=== PATIENT | female | born 1965 | race Caucasian/White ===

== ENCOUNTER 2016-11-03 19:23 | Emergency (ER) | payer OTHER ==
--- NOTE | 2016-11-03 21:50 | UC ---
Complaint Female HPI - HPI Summary HPI Summary: pain and burning with urination began 3-4 days ago but got better after taking premed amoxicillin for dental pain, now pain returns - History Of Current Complaint Chief Complaint: UCGU Stated Complaint: URINARY SYMPTOMS Time Seen by Provider: 11/03/16 21:38 Hx Obtained From: Patient Hx Last Menstrual Period: bleeding every 2 weeks ?: No Onset/Duration: Sudden Onset, Lasting Days, Still Present Timing: Constant, Lasting Days Severity Initially: Mild Severity Currently: Mild Pain Intensity: 3 Pain Scale Used: 0-10 Numeric Character: Burning Aggravating Factor(s): Urination Alleviating Factor(s): Meds - premed for dental work with high dose amoxicillin helped a little Associated Signs And Symptoms: Positive: Negative - Allergies/Home Medications Allergies/Adverse Reactions: Allergies Allergy/AdvReac Type Severity Reaction Status Date / Time Sulfa Antibiotics Allergy Rash Verified 11/03/16 21:51 Sumatriptan [From Imitrex] Allergy Difficulty Verified 11/03/16 21:51 Swallowing Home Medications: Home Medications Pramipexole TAB* [Mirapex TAB*] 0.125 mg PO BEDTIME 11/03/16 [History Confirmed 11/03/16] PMH/Surg Hx/FS Hx/Imm Hx Previously Healthy: No - Lupus Neurological History Of: Reports: Migraine Cancer History Of: Denies: Breast Cancer - Surgical History Surgical History: Yes Surgery Procedure, Year, and Place: T&A. 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 Lives: With Family Alcohol Use: None Substance Use Type: None Smoking Status (MU): Never Smoked Tobacco Review of Systems Constitutional: Negative Skin: Negative Eyes: Negative ENT: Negative Respiratory: Negative Cardiovascular: Negative Gastrointestinal: Negative Genitourinary: Dysuria, Frequency, Urgency Motor: Negative Neurovascular: Negative Musculoskeletal: Negative Neurological: Negative Psychological: Negative All Other Systems Reviewed And Are Negative: Yes Physical Exam Triage Information Reviewed: Yes Appearance: Well-Appearing, Well-Nourished, Pain Distress - mild Vital Signs Reviewed: Yes Eye Exam: Normal Eyes: Positive: Conjunctiva Clear ENT Exam: Normal ENT: Positive: Normal ENT inspection, Hearing grossly normal, TMs normal. Negative: Nasal congestion, Nasal drainage, Tonsillar swelling, Tonsillar exudate, Trismus, Muffled/hoarse voice Dental Exam: Normal Neck exam: Normal Neck: Positive: Supple, Nontender, No Lymphadenopathy Respiratory Exam: Normal Respiratory: Positive: Chest non-tender, Lungs clear, Normal breath sounds, No respiratory distress, No accessory muscle use Cardiovascular Exam: Normal Cardiovascular: Positive: No Murmur, Pulses Normal, Brisk Capillary Refill, Tachycardia Abdominal Exam: Other Abdomen Description: Positive: No Organomegaly, Soft, Other: - suprapubic discomfort. Negative: CVA Tenderness (R), CVA Tenderness (L) Bowel Sounds: Positive: Present Musculoskeletal Exam: Normal Musculoskeletal: Positive: Strength Intact, ROM Intact, No Edema Neurological Exam: Normal Neurological: Positive: Alert, Muscle Tone Normal Psychological Exam: Normal Psychological: Positive: Normal Response To Family Skin Exam: Normal Diagnostics - Laboratory Diagnostic Studies Completed/Ordered: ua - sg1.005 25 leuks Complaint Female Dx - Course Course Of Treatment: continue increase fluids, keflex, axo, culture urine follow with pcp re-check prn - Differential Dx/Diagnosis Differential Diagnosis/HQI/PQRI: Renal Colic, Sexually Transmitted Disease, Urinary Tract Infection Provider Diagnoses: UTI Discharge - Discharge Plan Condition: Stable Disposition: HOME Prescriptions: Cephalexin CAP* [Keflex CAP*] 500 mg PO BID #19 cap Fluconazole [Diflucan 150 MG (NF)] 150 mg PO SEE INSTRUCTIONS #1 tab Patient Education Materials: Cephalexin (By mouth), Phenazopyridine (By mouth) , Fluconazole (By mouth), Urinary Tract Infection in Women (ED) Referrals: Allison Oliva MD [Primary Care Provider] - If Needed
[2016-11-03 21:51] VITALS: BP 121/64
[2016-11-03] MEDS ORDERED: Cephalexin CAP* 500 MG PO ONE (22:03)
== END 2016-11-03 22:12 | disposition home or self-care (01) ==
LOC: UCCORT 19:23
DX: N39.0 Urinary tract infection, site not specified (principal); Z88.2 Allergy status to sulfonamides; Z88.8 Allergy status to other drugs, medicaments and biological substances
CPT/HCPCS: 87086; 99212; A9270-GY; G0463

== ENCOUNTER 2017-06-06 15:57 | Emergency (ER) | payer OTHER ==
[2017-06-06 16:36] VITALS: BP 115/69
--- NOTE | 2017-06-06 16:57 | UC ---
Throat Pain/Nasal Stephon HPI - HPI Summary HPI Summary: This is a 51 yo female who presented with c/o sinus pressure and CHARLES. She was treated for a sinus infection with her PCP ~1 month ago and tx'd with a Zpak. She received some temporary relief but then symptoms have been increased over the last 3 weeks again. She has been feeling feverish, pain is worse on the R side of her face. No cough or ST. No SOB. She has been using Sudafed without relief. She is treated for lupus and is on 2 immune suppresant medications. - History of Current Complaint Chief Complaint: UCGeneralIllness Stated Complaint: CHARLES/CONGESTION Hx Last Menstrual Period: 05/16/17 - Allergies/Home Medications Allergies/Adverse Reactions: Allergies Allergy/AdvReac Type Severity Reaction Status Date / Time Sulfa Antibiotics Allergy Rash Verified 06/06/17 16:30 Sumatriptan [From Imitrex] Allergy Difficulty Verified 06/06/17 16:30 Swallowing Home Medications: Home Medications Ibuprofen TAB* [Advil TAB*] 400 mg PO Q6H PRN 06/06/17 [History Confirmed ] Pseudoephedrine TAB* [Sudafed TAB*] 30 mg PO Q6H PRN 06/06/17 [History Confirmed 06/06/17] azaTHIOprine TAB(*) [Imuran TAB(*)] 50 mg PO DAILY 06/06/17 [History Confirmed 06/06/17] PMH/Surg Hx/FS Hx/Imm Hx Previously Healthy: No - lupus, migraine HAs, coagulopathy - Surgical History Surgical History: Yes Surgery Procedure, Year, and Place: T&A. BREAST SX X 2 - Family History Known Family History: Positive: Cardiac Disease, Hypertension, Diabetes - Social History Alcohol Use: None Substance Use Type: None Smoking Status (MU): Never Smoked Tobacco - Immunization History Most Recent Influenza Vaccination: none Review of Systems Constitutional: Negative Skin: Negative Eyes: Negative ENT: Ear Ache, Sinus Congestion, Sinus Pain/Tenderness Respiratory: Negative Cardiovascular: Negative Gastrointestinal: Negative Genitourinary: Negative Motor: Negative Neurovascular: Negative Musculoskeletal: Negative Neurological: Negative Psychological: Negative All Other Systems Reviewed And Are Negative: Yes Physical Exam Triage Information Reviewed: Yes Appearance: Ill-Appearing - mildly Vital Signs: Initial Vital Signs Temp 99.6 F 09/05/17 16:32 Pulse 80 06/06/17 16:32 Resp 16 06/06/17 16:32 BP 115/69 06/06/17 16:32 Pulse Ox 100 06/06/17 16:32 Vital Signs Reviewed: Yes ENT: Positive: Pharynx normal, Nasal congestion, TM dull. Negative: Pharyngeal erythema, Tonsillar swelling, Tonsillar exudate Dental: Positive: Percussion Tenderness @ - R maxillary and frontal sinuses Neck: Positive: Supple, Nontender, No Lymphadenopathy Respiratory: Positive: Lungs clear, Normal breath sounds. Negative: Crackles, Rhonchi, Wheezing Cardiovascular Exam: Normal Cardiovascular: Positive: RRR, No Murmur Abdominal Exam: Normal Abdomen Description: Positive: Nontender, Soft Musculoskeletal Exam: Normal Musculoskeletal: Positive: Strength Intact Neurological Exam: Normal Psychological Exam: Normal Skin Exam: Normal Skin: Negative: rashes Throat Pain/Nasal Course/Dx - Course Course Of Treatment: This is a 51 yo female with lupus who presents with worsening sinus symptoms over the last several weeks without response to decongestants. Treat for acute sinusitis with Augmentin. - Differential Dx/Diagnosis Differential Diagnosis/HQI/PQRI: Laryngitis, Sinusitis, Tonsillitis, URI Provider Diagnoses: 1. Sinusitis Discharge - Discharge Plan Condition: Stable Disposition: HOME Prescriptions: Amoxicillin/Clavulanate TAB* [Augmentin TAB 875*] 875 mg PO BID #28 tab Patient Education Materials: Sinusitis (ED) Referrals: Allison Oliva MD [Primary Care Provider] - If Needed Additional Instructions: Instructions: 1. Take antibiotics as directed 2. Please cont decongestants, steam therapy and other home remedies
== END 2017-06-06 16:55 | disposition home or self-care (01) ==
LOC: UCCORT 15:57
DX: J32.9 Chronic sinusitis, unspecified (principal); Z88.2 Allergy status to sulfonamides
CPT/HCPCS: 99212; G0463

== ENCOUNTER 2017-11-11 20:35 | Emergency (ER) | payer OTHER ==
--- OUTSIDE RECORDS SUMMARY | 2017-11-11 20:43 | XMS REPORT ---
:1965 External Reference #:[id number] Author Organization [facility] Address [address] [facility]/[address] [place] [address] Phone [phone] Care Team Providers Name Role Phone Allison Oliva MD Care Team Information Computer Security Manager Unavailable Allison Oliva MD Primary Care Physician Unavailable Payers Type Date Identification Numbers Payment Provider Subscriber Commercial Policy Number: [id number] [facility] Bebeto Alex PayID: [id number] [place] [address] Problems Date Description Provider Status Onset: 11/16/2016 Restless legs Zhang WalkerP Active Onset: 11/16/2016 Mixed hyperlipidemia Zhang WalkerP Active Onset: 11/16/2016 Allergic rhinitis hZang WalkerP Active Onset: 11/16/2016 Systemic lupus erythematosus Zhang Walker 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 Onset: 11/16/2016 Low back pain Zhang WalkerP Active Onset: 11/16/2016 Attention deficit hyperactivity disorder, Zhang WalkerP Active predominantly inattentive type Onset: 11/16/2016 Anxiety state Zhang WalkerP Active Onset: 11/16/2016 Recurrent major depressive episodes Zhang Walker 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 Onset: 11/16/2016 Insomnia Zhang Walker 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 Onset: 11/16/2016 Irritable bowel syndrome Zhang Walker 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 Onset: 11/16/2016 Refractory migraine with aura Zhang WalkerP Active Family History Date Family Member(s) Problem(s) Comments Father 68 Father Hypercholesterolemia Father Hypertension Father Diabetes Father Fibromyalgia Father Migraine Mother due to At Age 62 () Mother Migraine Mother due to Unknown Causes () First Son 20 First Son Migraine First Daughter Narcolepsey First Daughter 22 First Daughter [place]burgers- Autism First Brother 43 First Brother No Current Problems First Sister 46 First Sister Fibromyalgia Social History Type Date Description Comments Marital Status Legal Status: ETOH Use Rarely consumes alcohol Smoking Patient has never smoked Daily Caffeine Consumes on average 1 cup of regular coffee per day Allergies, Adverse Reactions, Alerts Date Description Reaction Status Severity Comments 01/21/2016 Imitrex active 09/23/2016 Neurontin SEVERE FLUID RETENTION active 12/21/2016 ALL Sulfa Drugs active Medications Medication Date Status Form Strength Qnty SIG Indications Ordering Provider Clindamycin HCL 10/19/ Hx Capsules 300mg 21caps 1 cap by J01.90 Pj, 2017 - mouth Allison Yeager, 10/26/ three M.DTamara 2018 times a day Fluconazole 05/04/ Active Tablets 150mg 2tabs tab one J01.80 Pj, 2016 now january Allison Yeager, repeat in M.D. 5 days Linzess 02/01/ Active Capsules 145mcg 45caps 1-2 one K59.00 Pj, 2017 hour Allison Yeager, prior to M.D. meals Fe Caps/Stool 02/01/ Active Tablets 50-100mg OTC M32.9 Pj, Softener 2016 Allison Yeager M.D. Pramipexole 11/16/ Active Tablets 0.125mg 60tabs tab two G25.81 Pj, Dihydrochloride 2016 by mouth Allison Yeager, every at M.D. bedtime Aspirin 05/20/ Active Tablets 81mg 1 by M32.9 Pj, 2015 mouth Allison Yeager, every day M.DTamara D68.61 Plaquenil 04/22/2016 Active Tablets 200mg 180tabs 1 tab by mouth M32.9 Pj, twice a Ahmad day-rheumatology Isabella Yeager Amphetamine-D Active Caps ER 10mg 30caps 1 tab by mouth F90.0 Pj, extroamphet 24HR every morning Allison Yeager M.D. Amphetamine-D Active Tablets 10mg 30tabs 1 tab by mouth @ F90.0 Pj, extroamphetam noon Allison Yeager M.D. Butalbital/Ac Active Tablets 50-325 30tabs tab one q 6 hr G43.11 Pj, etaminophen/C -40mg prn 9 Allison Yeager M.D. Azathioprine Active Tablets 50mg One PO qd Per Unknown Rheum Ciprofloxacin 06/29/2017 Hx Tablets 500mg 20tabs tab one by mouth Pj, HCL - twice a day Ahmad 07/09/2017 Isabella Yeager Nitrofurantoi 06/28/2017 Hx Capsules 100mg 10caps tab one by mouth Pj, n Monohyd - twice a day doreend Macro 06/29/2017 Isabella Yeager Azithromycin 05/04/2017 Hx Tablets 250mg 6tabs take two tablets J01.80 Pj, - [facility] dose on the first Isabella Yeager day then take one daily thereafter x 4 days Meclizine HCL 03/15/2017 Hx Tablets 25mg 30tabs 1 by mouth every H81.13 Pj, - 8 hours [facility] needed [facility] 03/[facility]2017 Isabella Yeager Alprazolam 12/21/2016 Hx Tablets 0.25mg 90tabs 1 by mouth three Pj, - times a day as mad 03/15/2017 needed Isabella Yeager Macrobid 12/21/2016 Hx Capsules 100mg 10caps tab one by mouth Pj, - twice a day x 5 Ahmad 12/26/2016 days Isabella Yeager Fluconazole 12/21/2016 Hx Tablets 100mg 10tabs tab one by mouth Pj, - x10 days mad 01/01/2017 Isabella Yeager Omeprazole 11/16/2016 Hx Capsules 40mg 30caps please cancel Pj, - DR bird gillian 11/11/2016 Isabella Yeager Azithromycin 10/12/2016 Hx Tablets 250mg 6tabs take two tablets J01.80 Pj, - by mouth as [facility]2016 dose on the first Isabella Yeager day then take one daily thereafter x 4 days Pramipexole 09/23/2016 Hx Tablets 0.125m 30tabs tab one by mouth G25.81 Pj, Dihydrochlori - g every at bedtime Ahmad de 11/16/2016 Isabella Yeager Amoxicillin 09/08/2016 Hx Tablets 500mg 40tabs 2 by mouth twice J20.9 Pj, - a day Ahmad 09/18/2016 Isabella Yeager Diflucan 09/08/2016 Hx Tablets 150mg 2tabs 1 tab by mouth J20.9 Pj, - today and [facility]2016 in 1 week as Isabella Yeager needed Neurontin 08/09/2016 Hx Capsules 100mg 60caps On Hold 1-2 cap G25.81 Pj, - by mouth every Ahmad 09/23/2016 night as needed Isabella Yeager Tranexamic Hx Tablets 650mg N92.0 Unknown Acid - 08/02/2016 Lorazepam Hx Tablets 0.5mg 30tabs 1/2-1 tab by G25.81 Pj, - mouth every night Ahrid 10/12/2016 as needed Isabella Yeager G47.00 F41.9 Pramipexole - Hx Tablets 0.5mg G25.81 Sd Lang Dihydrochloride 08/02/2016 Isabella Vital Signs Date Vital Result Comment 10/19/2017 BP Systolic 110 mmHg BP Diastolic 60 mmHg Height 67 inches 5'7" Weight 139.00 lb BMI (Body Mass Index) 21.8 kg/m2 Heart Rate 119 /min Respiratory Rate 18 /min 08/23/2017 BP Systolic 110 mmHg BP Diastolic 68 mmHg Height 67 inches 5'7" Weight 141.00 lb BMI (Body Mass Index) 22.1 kg/m2 Heart Rate 84 /min Respiratory Rate 16 /min 07/26/2017 BP Systolic 120 mmHg BP Diastolic 78 mmHg Height 67 inches 5'7" Weight 144.00 lb BMI (Body Mass Index) 22.6 kg/m2 Heart Rate 97 /min Respiratory Rate 16 /min 06/28/2017 BP Systolic 108 mmHg BP Diastolic 62 mmHg Height 67 inches 5'7" Weight 143.00 lb BMI (Body Mass Index) 22.4 kg/m2 Heart Rate 86 /min Respiratory Rate 18 /min 06/07/2017 BP Systolic 118 mmHg BP Diastolic 95 mmHg Height 67 inches 5'7" Weight 138.00 lb BMI (Body Mass Index) 21.6 kg/m2 Heart Rate 98 /min Respiratory Rate 16 /min 05/31/2017 BP Systolic 100 mmHg BP Diastolic 60 mmHg Height 67 inches 5'7" Weight 138.00 lb BMI (Body Mass Index) 21.6 kg/m2 Heart Rate 82 /min Respiratory Rate 18 /min 05/04/2017 BP Systolic 110 mmHg BP Diastolic 60 mmHg Height 67 inches 5'7" Weight 145.00 lb BMI (Body Mass Index) 22.7 kg/m2 Heart Rate 98 /min Body Temperature 97.6 F Respiratory Rate 16 /min 03/15/2017 BP Systolic 118 mmHg BP Diastolic 70 mmHg Height 67 inches 5'7" Weight 137.00 lb BMI (Body Mass Index) 21.5 kg/m2 Heart Rate 97 /min Respiratory Rate 16 /min 02/01/2017 BP Systolic 126 mmHg BP Diastolic 64 mmHg Height 67 inches 5'7" Weight 137.00 lb BMI (Body Mass Index) 21.5 kg/m2 Heart Rate 68 /min Respiratory Rate 16 /min 12/21/2016 BP Systolic 118 mmHg BP Diastolic 72 mmHg Height 67 inches 5'7" Weight 140.00 lb BMI (Body Mass Index) 21.9 kg/m2 Heart Rate 90 /min Respiratory Rate 18 /min 11/16/2016 BP Systolic 118 mmHg BP Diastolic 72 mmHg Height 67 inches 5'7" Weight 141.00 lb BMI (Body Mass Index) 22.1 kg/m2 Heart Rate 104 /min Respiratory Rate 18 /min 10/12/2016 BP Systolic 118 mmHg BP Diastolic 62 mmHg Height 67 inches 5'7" Weight 136.00 lb BMI (Body Mass Index) 21.3 kg/m2 Heart Rate 70 /min Respiratory Rate 18 /min 09/23/2016 BP Systolic 108 mmHg BP Diastolic 62 mmHg Height 67 inches 5'7" Weight 139.00 lb BMI (Body Mass Index) 21.8 kg/m2 Heart Rate 83 /min Respiratory Rate 20 /min 09/08/2016 BP Systolic 100 mmHg BP Diastolic 72 mmHg Height 67 inches 5'7" Weight 139.00 lb BMI (Body Mass Index) 21.8 kg/m2 Heart Rate 72 /min Respiratory Rate 18 /min 08/09/2016 BP Systolic 108 mmHg BP Diastolic 68 mmHg Height 67 inches 5'7" Weight 137.00 lb BMI (Body Mass Index) 21.5 kg/m2 Heart Rate 61 /min Respiratory Rate 16 /min 06/24/2016 BP Systolic 104 mmHg BP Diastolic 66 mmHg Height 67 inches 5'7" Weight 136.00 lb BMI (Body Mass Index) 21.3 kg/m2 Heart Rate 86 /min Respiratory Rate 20 /min 05/20/2016 BP Systolic 116 mmHg BP Diastolic 68 mmHg Height 67 inches 5'7" Weight 136.00 lb BMI (Body Mass Index) 21.3 kg/m2 Heart Rate 74 /min Respiratory Rate 20 /min 04/22/2016 BP Systolic 124 mmHg BP Diastolic 76 mmHg Height 67 inches 5'7" Weight 139.00 lb BMI (Body Mass Index) 21.8 kg/m2 Heart Rate 84 /min Respiratory Rate 20 /min 03/18/2016 BP Systolic 112 mmHg BP Diastolic 82 mmHg Height 67 inches 5'7" Weight 139.00 lb BMI (Body Mass Index) 21.8 kg/m2 Heart Rate 74 /min Respiratory Rate 18 /min 02/25/2016 BP Systolic 116 mmHg BP Diastolic 80 mmHg Height 67 inches 5'7" Weight 137.00 lb BMI (Body Mass Index) 21.5 kg/m2 Heart Rate 72 /min Respiratory Rate 18 /min 02/19/2016 BP Systolic 104 mmHg BP Diastolic 60 mmHg Height 67 inches 5'7" Weight 137.00 lb BMI (Body Mass Index) 21.5 kg/m2 Heart Rate 72 /min Respiratory Rate 16 /min 01/21/2016 BP Systolic 126 mmHg BP Diastolic 64 mmHg Height 67 inches 5'7" Weight 140.00 lb BMI (Body Mass Index) 21.9 kg/m2 Heart Rate 105 /min Body Temperature 97.3 F Respiratory Rate 18 /min Results Test Date Test Result H/L Range Note Laboratory test finding 07/26/2017 Hemoglobin A1c (Glyco HGB) 5.0 % 4.0- 5.6 1 Vitamin D Total 25(Oh) 19.0 ng/mL Low 20-50 2 Erythrocyte Sed Rate 10 mm/Hr 0-14 3 CRP High Sensitivity 1.38 mg/L 4 Lipid Profile (Trig/Chol/HDL) 07/26/2017 Triglycerides 99 mg/dL 5 Cholesterol 268 mg/dL 6 HDL Cholesterol 61.0 mg/dL 7 LDL Cholesterol 187 mg/dL 8 Laboratory test finding 07/26/2017 TSH (Thyroid Stim Horm) 2.10 mcIU/mL 0.34-5.60 9 Comp Metabolic Panel 07/26/2017 Sodium 136 mmol/L 133-145 Potassium 4.0 mmol/L 3.5-5.0 Chloride 104 mmol/L 101-111 Co2 Carbon Dioxide 23 mmol/L 22-32 Anion Gap 9 mmol/L 2-11 Glucose 78 mg/dL 70-100 Blood Urea Nitrogen 14 mg/dL 6-24 Creatinine 0.68 mg/dL 0.51-0.95 BUN/Creatinine Ratio 20.6 High 8-20 Calcium 9.1 mg/dL 8.6-10.3 Total Protein 6.9 g/dL 6.4-8.9 Albumin 4.2 g/dL 3.2-5.2 Globulin 2.7 g/dL 2-4 Albumin/Globulin Ratio 1.6 1-3 Total Bilirubin 0.30 mg/dL 0.2-1.0 Alkaline Phosphatase 44 U/L 34-104 Alt 12 U/L 7-52 Ast 17 U/L 13-39 Egfr Non- 92.0 >60 Egfr 118.3 >60 10 CBC Auto Diff 07/26/2017 White Blood Count 5.3 10^3/uL 3.5-10.8 Red Blood Count 4.38 10^6/uL 4.0-5.4 Hemoglobin 12.1 g/dL 12.0-16.0 Hematocrit 37 % 35-47 Mean Corpuscular Volume 84 fL 80-97 Mean Corpuscular Hemoglobin 28 pg 27-31 Mean Corpuscular HGB Conc 33 g/dL 31-36 Red Cell Distribution Width 19 % High 10.5-15 Platelet Count 257 10^3/uL 150-450 Mean Platelet Volume 9 um3 7.4-10.4 Abs Neutrophils 3.5 10^3/uL 1.5-7.7 Abs Lymphocytes 1.2 10^3/uL 1.0-4.8 Abs Monocytes 0.5 10^3/uL 0-0.8 Abs Eosinophils 0.1 10^3/uL 0-0.6 Abs Basophils 0 10^3/uL 0-0.2 Abs Nucleated RBC 0 10^3/uL Granulocyte % 65.2 % 38-83 Lymphocyte % 23.4 % Low 25-47 Monocyte % 9.8 % High 1-9 Eosinophil % 1.0 % 0-6 Basophil % 0.6 % 0-2 Nucleated Red Blood Cells % 0 Creatinine 06/03/2017 Creatinine 0.71 mg/dL 0.51-0.95 Egfr Non- 87.5 >60 Egfr 112.5 >60 11 Comp Metabolic Panel 06/03/2017 Sodium 137 mmol/L 133-145 Potassium 3.9 mmol/L 3.5-5.0 Chloride 104 mmol/L 101-111 Co2 Carbon Dioxide 27 mmol/L 22-32 Anion Gap 6 mmol/L 2-11 Glucose 87 mg/dL 70-100 Blood Urea Nitrogen 14 mg/dL 6-24 Creatinine 0.71 mg/dL 0.51-0.95 BUN/Creatinine Ratio 19.7 8-20 Calcium 9.4 mg/dL 8.6-10.3 Total Protein 6.8 g/dL 6.4-8.9 Albumin 4.5 g/dL 3.2-5.2 Globulin 2.3 g/dL 2-4 Albumin/Globulin Ratio 2.0 1-3 Total Bilirubin 0.30 mg/dL 0.2-1.0 Alkaline Phosphatase 42 U/L 34-104 Alt 11 U/L 7-52 Ast 16 U/L 13-39 Egfr Non- 87.5 >60 Egfr 112.5 >60 12 Laboratory test finding 06/03/2017 C Reactive Protein < 1.00 mg/L &lt ; 5.00 13 TSH (Thyroid Stim Horm) 1.31 mcIU/mL 0.34-5.60 Free T3 2.70 pg/mL 2.5-3.9 Free T4 (Free Thyroxine) 0.95 ng/dL 0.61-1.12 Total T3 0.73 ng/mL Low 0.87-1.78 Thyroid Peroxidase Antibodies 0.63 IU/mL <9 CBC Auto Diff 06/03/2017 White Blood Count 4.7 10^3/uL 3.5-10.8 Red Blood Count 4.25 10^6/uL 4.0-5.4 Hemoglobin 11.0 g/dL Low 12.0-16.0 Hematocrit 34 % Low 35-47 Mean Corpuscular Volume 79 fL Low 80-97 Mean Corpuscular Hemoglobin 26 pg Low 27-31 Mean Corpuscular HGB Conc 33 g/dL 31-36 Red Cell Distribution Width 19 % High 10.5-15 Platelet Count 265 10^3/uL 150-450 Mean Platelet Volume 9 um3 7.4-10.4 Abs Neutrophils 2.9 10^3/uL 1.5-7.7 Abs Lymphocytes 1.3 10^3/uL 1.0-4.8 Abs Monocytes 0.3 10^3/uL 0-0.8 Abs Eosinophils 0.1 10^3/uL 0-0.6 Abs Basophils 0 10^3/uL 0-0.2 Abs Nucleated RBC 0 10^3/uL Granulocyte % 61.6 % 38-83 Lymphocyte % 27.8 % 25-47 Monocyte % 7.2 % 1-9 Eosinophil % 2.6 % 0-6 Basophil % 0.8 % 0-2 Nucleated Red Blood Cells % 0 Laboratory test finding 06/03/2017 Erythrocyte Sed Rate 11 mm/Hr 0-14 Thyroglobulin AB <1.8 IU/mL <4.0 14 Factor 8 Profile 06/03/2017 Coagulation Factor VIII Activi 65 % 55 - 200 15 von Willebrand Factor Antigen 72 % 55 - 200 16 VonWillibrand Factor Activity 67 % 55 - 200 17 von Willebrand Panel Interp See Comment 18 Laboratory test 06/03/2017 T3 Reverse 24 ng/dL 10- 19 finding Laboratory test 11/03/2016 Urine Culture And SEE RESULT 20, 21 finding Sensitivities BELOW CBC Auto Diff 07/21/2016 White Blood Count 5.3 10^3/uL 3.5-10.8 22 Red Blood Count 3.92 10^6/uL Low 4.0-5.4 22 Hemoglobin 9.9 g/dL Low 12.0-16.0 22 Hematocrit 31 % Low 35-47 22 Mean Corpuscular Volume 78 fL Low 80-97 22 Mean Corpuscular Hemoglobin 25 pg Low 27-31 22 Mean Corpuscular HGB Conc 32 g/dL 31-36 22 Red Cell Distribution Width 16 % High 10.5-15 22 Platelet Count 290 10^3/uL 150-450 22 Mean Platelet Volume 9 um3 7.4-10.4 22 Abs Neutrophils 3.2 10^3/uL 1.5-7.7 22 Abs Lymphocytes 1.4 10^3/uL 1.0-4.8 22 Abs Monocytes 0.5 10^3/uL 0-0.8 22 Abs Eosinophils 0.1 10^3/uL 0-0.6 22 Abs Basophils 0 10^3/uL 0-0.2 22 Abs Nucleated RBC 0 10^3/uL 22 Granulocyte % 60.2 % 38-83 22 Lymphocyte % 27.0 % 25-47 22 Monocyte % 10.3 % High 1-9 22 Eosinophil % 1.6 % 0-6 22 Basophil % 0.9 % 0-2 22 Nucleated Red Blood Cells % 0 22 Laboratory test finding 07/17/2016 Urine Culture SEE RESULT BELOW 23, 24 Iron & Iron Binding 02/19/2016 Iron 35 g/dL Low 50-212 Capacity Unsaturated Iron Binding 315 g/dL Total Iron Binding Capacity 350 g/dL 250-450 % Iron Saturation 10 % Low 15-55 Lipid Profile (Trig/Chol/HDL) 02/19/2016 Triglycerides 55 mg/dL 25 Cholesterol 213 mg/dL 26 HDL Cholesterol 63.5 mg/dL 27 LDL Cholesterol 139 mg/dL 28 Laboratory test finding 02/19/2016 Rheumatoid Factor <15 IU/mL <15 29 TSH (Thyroid Stim Horm) 0.73 ?IU/mL 0.34-5.60 30 Free T4 (Free Thyroxine) 0.92 ng/dL 0.61-1.12 31 Vitamin D, 1,25 Dihydroxy 61 pg/mL 18-78 32 Lyme Disease Serology Negative Negative 33 Hepatitis Acute PNL 02/19/2016 Hepatitis C Antibody Nonreactive Nonreactive 34 ([facility]) Hepatitis A AB Igm Nonreactive Nonreactive 35 Hepatitis B Core AB Igm Nonreactive Nonreactive 36 Hepatitis B Surface Ag Nonreactive Nonreactive 37 Laboratory test finding 02/19/2016 CRP High Sensitivity 0.89 mg/L 38 Erythrocyte Sed Rate 7 mm/Hr 0-14 39 Connective Tissue Panel 02/19/2016 Anti-Nuclear Antibody 1.5 U High 40 Cyclic Citrullinated Peptide 17.8 U 41 Interpretation See Comment 42 Comp Metabolic Panel 02/19/2016 Sodium 137 mmol/L 133-145 Potassium 3.5 mmol/L 3.5-5.0 Chloride 105 mmol/L 101-111 Co2 Carbon Dioxide 26 mmol/L 22-32 Anion Gap 6 mmol/L 2-11 Glucose 96 mg/dL 70-100 Blood Urea Nitrogen 15 mg/dL 6-24 Creatinine 0.64 mg/dL 0.51-0.95 BUN/Creatinine Ratio 23.4 High 8-20 Calcium 8.7 mg/dL 8.6-10.3 Total Protein 6.4 g/dL 6.4-8.9 Albumin 4.2 g/dL 3.2-5.2 Globulin 2.2 g/dL 2-4 Albumin/Globulin Ratio 1.9 1-3 Total Bilirubin 0.40 mg/dL 0.2-1.0 Alkaline Phosphatase 39 U/L 34-104 Alt 13 U/L 7-52 Ast 14 U/L 13-39 Egfr Non- 99.0 >60 Egfr 127.4 >60 43 CBC Auto Diff 02/19/2016 White Blood Count 6.6 10^3/uL 3.5-10.8 Red Blood Count 3.97 10^6/uL Low 4.0-5.4 Hemoglobin 11.1 g/dL Low 12.0-16.0 Hematocrit 33 % Low 35-47 Mean Corpuscular Volume 84 fL 80-97 Mean Corpuscular Hemoglobin 28 pg 27-31 Mean Corpuscular HGB Conc 33 g/dL 31-36 Red Cell Distribution Width 14 % 10.5-15 Platelet Count 240 10^3/uL 150-450 Mean Platelet Volume 10 um3 7.4-10.4 Abs Neutrophils 4.4 10^3/uL 1.5-7.7 Abs Lymphocytes 1.5 10^3/uL 1.0-4.8 Abs Monocytes 0.5 10^3/uL 0-0.8 Abs Eosinophils 0.1 10^3/uL 0-0.6 Abs Basophils 0 10^3/uL 0-0.2 Abs Nucleated RBC 0 10^3/uL Granulocyte % 66.8 % 38-83 Lymphocyte % 22.8 % Low 25-47 Monocyte % 8.1 % 1-9 Eosinophil % 1.9 % 0-6 Basophil % 0.4 % 0-2 Nucleated Red Blood Cells % 0 1 Therapeutic target for the treatment of diabetes mellitus patients is <7% HBA1C, and in selective patients <6.0%. Please refer to [place] [employer] diabetic care guidelines for further information. 2 [id number] 3 [id number] 4 Low risk: <1.00 Average risk: 1.00-3.00 High risk: >3.00 5 Desirable: <150 Borderline High: 150-199 High: 200-499 Very High: >500 6 Desirable: <200 Borderline High: 200-239 High: >239 7 Low: <40 Desirable: 40-60 High: >60 8 Desirable: <100 Near Optimal: 100-129 Borderline High: 130-159 High: 160-189 Very High: >189 9 [id number] 10 Because ethnic data is not always readily available, this report includes an eGFR for both -Americans and non- Americans. The National Kidney Disease Education Program (NKDEP) does not endorse the use of the MDRD equation for patients that are not between the ages of 18 and 70, are , have extremes of body size, muscle mass, or nutritional status, or are non- or non-. According to the National Kidney Foundation, irrespective of diagnosis, the stage of the disease is based on the level of kidney function: Stage Description GFR(mL/min/1.73 m(2)) 1 Kidney damage with normal or decreased GFR 90 2 Kidney damage with mild decrease in GFR 60-89 3 Moderate decrease in GFR 30-59 4 Severe decrease in GFR 15-29 5 Kidney failure <15 (or dialysis) 11 Because ethnic data is not always readily available, this report includes an eGFR for both -Americans and non- Americans. The National Kidney Disease Education Program (NKDEP) does not endorse the use of the MDRD equation for patients that are not between the ages of 18 and 70, are , have extremes of body size, muscle mass, or nutritional status, or are non- or non-. According to the National Kidney Foundation, irrespective of diagnosis, the stage of the disease is based on the level of kidney function: Stage Description GFR(mL/min/1.73 m(2)) 1 Kidney damage with normal or decreased GFR 90 2 Kidney damage with mild decrease in GFR 60-89 3 Moderate decrease in GFR 30-59 4 Severe decrease in GFR 15-29 5 Kidney failure <15 (or dialysis) 12 Because ethnic data is not always readily available, this report includes an eGFR for both -Americans and non- Americans. The National Kidney Disease Education Program (NKDEP) does not endorse the use of the MDRD equation for patients that are not between the ages of 18 and 70, are , have extremes of body size, muscle mass, or nutritional status, or are non- or non-. According to the National Kidney Foundation, irrespective of diagnosis, the stage of the disease is based on the level of kidney function: Stage Description GFR(mL/min/1.73 m(2)) 1 Kidney damage with normal or decreased GFR 90 2 Kidney damage with mild decrease in GFR 60-89 3 Moderate decrease in GFR 30-59 4 Severe decrease in GFR 15-29 5 Kidney failure <15 (or dialysis) 13 Acute inflammation: >10.00 14 ADDITIONAL INFORMATION The thyroglobulin antibody testing method is an immunoenzymatic assay manufactured by [employer] and performed on the [employer] DXI 800. Values obtained from different assay methods or kits may be different and cannot be used interchangeably. The results cannot be interpreted as absolute evidence for the presence or absence of malignant disease. Test Performed by: [facility] - [address] [address] 15 ADDITIONAL INFORMATION This test has been modified from the supervisor livestock yard's instructions. Its performance characteristics were determined by [facility] in a manner consistent with CLIA requirements. This test has not been cleared or approved by the U.S. Food and Drug Administration. 16 ADDITIONAL INFORMATION This test has been modified from the supervisor livestock yard's instructions. Its performance characteristics were determined by [facility] in a manner consistent with CLIA requirements. This test has not been cleared or approved by the U.S. Food and Drug Administration. 17 ADDITIONAL INFORMATION This test has been modified from the supervisor livestock yard's instructions. Its performance characteristics were determined by [facility] in a manner consistent with CLIA requirements. This test has not been cleared or approved by the U.S. Food and Drug Administration. 18 No laboratory evidence of von Willebrand's disease based on normal results of factor VIII activity, von Willebrand factor activity, and von Willebrand factor antigen. Note: von Willebrand factor antigen and activity and/or factor VIII may be increased above baseline levels by acute or chronic inflammation, stress or adrenergic stimuli, or estrogen and oral contraceptive therapy, or liver disease. Recent administration of desmopressin or von Willebrand factor concentrate may mask the diagnosis of von Willebrand's disease. Suggest clinical correlation. Interpretation not reviewed by physician. Test Performed by: [facility] - [address] [address] 19 ADDITIONAL INFORMATION This test was developed and its performance characteristics determined by [facility] in a manner consistent with CLIA requirements. This test has not been cleared or approved by the U.S. Food and Drug Administration. Test Performed by: [facility] - [address] [id number] 20 [id number] 21 SEE RESULT BELOW Name: BEBETO ALEX : [address]: Sayra Allen MD Acct: [id number] Unit: [id number] AGE: 51 Location: [facility] Re11/03/16 SEX: F Status: DEP ER SPEC: [id number] ODESSA: 11/03/16 [facility] DR: Suzy Owusu NP REQ: [id number] RECD: 11/04/16 STATUS: COMP CAYLA DR: Allison Allen MD _ SOURCE: URINE SPDESC: ORDERED: Urine Culture COMMENTS: [id number] Procedure Result Reported Site Urine Culture Final 11/05/16- 916 ML No Growth (<1,000 CFU/mL) * ML - MAIN LAB ([facility]) . END OF REPORT * ML=Testing performed at Main Lab DEPARTMENT OF PATHOLOGY, [address] [place] [address] Toro Sheldon M.D. Director [facility] # [id number] 24 SEE RESULT BELOW Name: BEBETO ALEX : [address]: Lyle Napoles MD Acct: [id number] Unit: [id number] AGE: 50 Location: [facility] Re07/17/16 SEX: F Status: DEP ER SPEC: [id number] ODESSA: 07/17/16 [facility] DR: Lyle Napoles MD REQ: [id number] RECD: 07/18/16 STATUS: TREVOR KULKARNI DR: Allison Oliva MD [facility] _ SOURCE: URINE SPDESC: ORDERED: Urine Culture COMMENTS: [id number] Procedure Result Reported Site Urine Culture Final 07/19/16- 0836 ML No Growth (<1,000 CFU/mL) * ML - [facility] ([facility]) . END OF REPORT * ML=Testing performed at Main [facility] DEPARTMENT OF PATHOLOGY, [address] [place] [address] Toro Sheldon M.D. Director [facility] # [id number] 25 Desirable <150 Borderline high 150-199 High 200-499 Very High >500 26 Desirable <200 Borderline high 200-239 High >239 27 Low <40 Desirable: 40-60 High: >60 28 Desirable: <100 mg/dL Near Optimal: 100-129 mg/dL Borderline High: 130-159 mg/dL High: 160-189 mg/dL Very High: >189 mg/dL 29 Test Performed by: [address] [address] Manager Nicu: Yan Sage II, M.D., Ph.D. 30 [id number] 32 Test Performed by: [address] [address] Manager Nicu: Yan Sage II, M.D., Ph.D. 33 Serologic response to B. burgdorferi infection is not detected, but cannot rule out early infection during which low or undetectable antibody levels to B. burgdorferi may be present. If clinically indicated, a new serum specimen should be submitted in 7-14 days. Test Performed by: [facility] [place] [address] Manager Nicu: Yan Sage II, M.D., Ph.D. 34 [id number] 38 Low risk: <1.00 Average risk: 1.00-3.00 High risk: >3.00 39 [id number] 40 Interpretation: Weak Positive (1.1-2.9) REFERENCE VALUE <=1.0 (Negative) 41 REFERENCE VALUE <20.0 (Negative) 42 Tests for antibodies to dsDNA and CHRIS antigens are not performed automatically unless the MANOJ result is > or= 3.0 U. Studies performed at [facility] indicate that positive MANOJ results <3.0 U are rarely accompanied by positive second order tests. Test Performed by: [facility] [place] [address] Manager Nicu: Yan Sage II, M.D., Ph.D. 43 Because ethnic data is not always readily available, this report includes an eGFR for both -Americans and non- Americans. The National Kidney Disease Education Program (NKDEP) does not endorse the use of the MDRD equation for patients that are not between the ages of 18 and 70, are , have extremes of body size, muscle mass, or nutritional status, or are non- or non-. According to the National Kidney Foundation, irrespective of diagnosis, the stage of the disease is based on the level of kidney function: Stage Description GFR(mL/min/1.73 m(2)) 1 Kidney damage with normal or decreased GFR 90 2 Kidney damage with mild decrease in GFR 60-89 3 Moderate decrease in GFR 30-59 4 Severe decrease in GFR 15-29 5 Kidney failure <15 (or dialysis) Procedures Date CPT Code Description Status 07/26/2017 96745 Visual Screening Test Completed 07/26/2017 57071 Audiometry, Bekesy, Screening Completed 05/04/2017 84028 Tympanometry Completed 09/08/2016 99581 Spirometry Completed 09/08/2016 87672 Tympanometry Completed 05/20/2016 08293 EKG Completed 01/21/2016 90056 Visual Screening Test Completed 01/21/2016 78645 Audiometry, Bekesy, Screening Completed Encounters Type Date Location Provider CPT E/M Dx Office Visit 10/19/2017 9:30a [facility] [place] [address] M32.9 F90.0 M35.03 G25.81 I83.11 I83.12 N92.0 L20.9 M54.5 M25.559 M25.569 F41.9 F33.9 G47.00 R53.83 K58.9 G43.119 J45.909 M35.8 D68.61 D50.9 J01.90 R09.81 Office Visit 08/23/2017 9:45a [facility] Zhang Walker [facility] [address] M32.9 F90.0 M35.03 G25.81 E05.90 Office Visit 07/26/2017 9:30a [facility] Zhang Walker [facility] [address] Z00.01 M32.9 F90.0 M35.03 G25.81 Office Visit 06/28/2017 9:45a [facility] Zhang Walker 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 [address] M32.9 G25.81 Z79.899 F90.0 Office Visit 06/07/2017 4:00p [facility] Zhang Walker 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 [address]841 M32.9 E05.90 Office Visit 05/31/2017 11:00a [facility] Denise Zhang [facility] [address] E05.90 M32.9 E61.1 I83.11 I83.12 N92.0 Office Visit 05/04/2017 9:30a [facility] Zhang Walker [facility] [address] H81.13 G25.81 E78.2 M32.9 F90.0 J02.9 J01.80 Office Visit 03/15/2017 9:45a [facility] Zhang Walker [facility] [address] H81.13 G25.81 E78.2 M32.9 F90.0 Office Visit 02/01/2017 10:00a [facility] Zhang Walker [facility] [address] G25.81 E78.2 M32.9 N30.20 M79.606 F90.0 K59.00 E61.1 Office Visit 12/21/2016 9:45a [facility] Zhang Walker [facility] [address] G25.81 E78.2 M32.9 N30.20 M79.606 F90.0 Office Visit 11/16/2016 9:45a [facility] Zhang Walker [facility] [address] G25.81 E78.2 J30.9 M32.9 N30.20 J31.2 Office Visit 10/12/2016 9:45a [facility] Zhang Walker [facility] [address] G25.81 E78.2 J30.9 M32.9 J01.80 Office Visit 09/23/2016 10:30a [facility] Zhang Walker [facility] [address] G25.81 Office Visit 09/08/2016 10:15a [facility] Allison Oliva M.D. 30974 E78.2 J30.9 L20.9 M54.5 M79.606 M25.559 M25.569 F90.0 F41.9 F33.9 G47.00 R53.83 K59.00 K58.9 G43.119 N92.0 G25.81 J45.909 M32.9 M35.8 J31.2 D68.61 R07.9 D50.9 J20.9 J01.40 H66.93 R06.02 R05 R09.81 Office Visit 08/09/2016 10:00a [facility] Allison Oliva M.D. 50785 E78.2 J30.9 L20.9 M54.5 M79.606 M25.559 M25.569 F90.0 F41.9 F33.9 G47.00 R53.83 K59.00 K58.9 G43.119 N92.0 G25.81 J45.909 M32.9 M35.8 J31.2 D68.61 R07.9 D50.9 Office Visit 06/24/2016 9:30a [facility] Allison Oliva M.D. 57656 E78.2 J30.9 L20.9 M54.5 M79.606 M25.559 M25.569 F90.0 F41.9 F33.9 G47.00 R53.83 K59.00 K58.9 G43.119 G25.81 N92.0 J45.909 M32.9 M35.8 J31.2 D68.61 R07.9 Office Visit 05/20/2016 9:30a [facility] Allison Oliva M.D. 68223 E78.2 J30.9 L20.9 M54.5 M79.606 M25.559 M25.569 F90.0 F41.9 F33.9 G47.00 R53.83 K59.00 K58.9 G43.119 G25.81 N92.0 J45.909 M32.9 M35.8 J31.2 D68.61 R07.9 Office Visit 04/22/2016 9:45a [facility] Allison Oliva M.D. 76364 E78.2 J30.9 L20.9 M54.5 M79.606 M25.559 M25.569 F90.0 F41.9 F33.9 G47.00 R53.83 K59.00 K58.9 G43.119 G25.81 N92.0 J45.909 M32.9 M35.8 J31.2 Office Visit 03/18/2016 9:45a [facility] Allison Oliva M.D. 01530 E78.2 J30.9 L20.9 M54.5 M79.606 M25.559 M25.569 F90.0 F41.9 F33.9 G47.00 R53.83 K59.00 K58.9 G43.119 G25.81 N92.0 J45.909 M32.9 M35.8 J02.9 Office Visit 02/25/2016 11:30a [facility] Allison Oliva M.D. 33640 E78.2 J30.9 L20.9 M54.5 M79.606 M25.559 M25.569 F90.0 F41.9 F33.9 G47.00 R53.83 K59.00 K58.9 G43.119 G25.81 N92.0 J45.909 M32.9 M35.8 Office Visit 02/19/2016 9:45a [facility] Allison Oliva M.D. 09221 E78.2 J30.9 L20.9 M54.5 M79.606 M25.559 M25.569 F90.0 F41.9 F33.9 G47.00 R53.83 K59.00 K58.9 G43.119 G25.81 N92.0 J45.909 Office Visit 01/21/2016 10:00a [facility] Allison Oliva M.D. 79245 Z00.01 E78.2 J30.9 L20.9 M54.5 M79.606 M25.559 Z68.21 M25.569 F90.0 F41.9 F33.9 G47.00 R53.83 K59.00 K58.9 G43.119 G25.81 N92.0 J45.909 Plan of Care Future Appointment(s):11/23/2017 9:45 [facility] - Jean Gonzales PA at [facility]
[2017-11-11 21:27] VITALS: BP 114/63
[2017-11-11] MEDS ORDERED: Ondansetron ODT TAB* 4 MG PO ONE ×2 (23:14)
--- NOTE | 2017-11-11 23:29 | UC ---
Abdominal Pain Male HPI - HPI Summary HPI Summary: 52 yo female with the onset of nausea/anorexia/diarrhea x 4 and fever today Has been on 2 rounds of antibiotics in the past 4 weeks for sinusitis (she thinks augmentin and clinda...but she is not sure) no UTI or URI symptoms she has LUPUS - History of Current Complaint Chief Complaint: UCGeneralIllness Stated Complaint: FEVER Time Seen by Provider: 11/11/17 22:16 Hx Obtained From: Patient Onset/Duration: Sudden Onset, Lasting Hours Timing: Constant Severity Initially: Moderate Severity Currently: Moderate Pain Intensity: 8 Pain Scale Used: 0-10 Numeric Location: Diffuse Character: Cramping Alleviating Factor(s): Nothing Associated Signs And Symptoms: Positive: Fever, Decreased Appetite, Nausea, Diarrhea. Negative: Vomiting - Allergies/Home Medications Allergies/Adverse Reactions: Allergies Allergy/AdvReac Type Severity Reaction Status Date / Time MS Sulfa Antibiotics Allergy Rash Verified 11/11/17 21:27 [Sulfa Antibiotics] MS Sumatriptan [From Imitrex] Allergy Difficulty Verified 11/11/17 21:27 Swallowing PMH/Surg Hx/FS Hx/Imm Hx Previously Healthy: Yes - LUPUS - Surgical History Surgical History: Yes Surgery Procedure, Year, and Place: T&A. BREAST SX X 2 - Family History Known Family History: Positive: Cardiac Disease, Hypertension, Diabetes, Other - RA - Social History Alcohol Use: None Substance Use Type: None Smoking Status (MU): Never Smoked Tobacco - Immunization History Most Recent Influenza Vaccination: none Review of Systems Constitutional: Fever, Chills, Fatigue Skin: Negative Eyes: Negative ENT: Negative Respiratory: Negative Cardiovascular: Negative Gastrointestinal: Abdominal Pain, Diarrhea, Nausea Genitourinary: Negative Motor: Negative Neurovascular: Negative Musculoskeletal: Negative Neurological: Headache Psychological: Negative Is Patient Immunocompromised?: No All Other Systems Reviewed And Are Negative: Yes Physical Exam Triage Information Reviewed: Yes Appearance: Ill-Appearing - non-toxic appearing Vital Signs: Initial Vital Signs Temp 102.9 F 11/11/17 21:22 Pulse 126 11/11/17 21:22 Resp 16 11/11/17 21:22 BP 114/63 11/11/17 21:22 Pulse Ox 100 11/11/17 21:22 Eyes: Positive: Conjunctiva Clear ENT: Positive: Hearing grossly normal, Nasal drainage, Uvula midline, Other - moist mucous membranes. Negative: Trismus, Muffled voice, Hoarse voice, Sinus tenderness Neck: Positive: Supple, Nontender Respiratory: Positive: Lungs clear, Normal breath sounds, No respiratory distress Cardiovascular: Positive: RRR, No Murmur, Tachycardia Abdomen Description: Positive: Nontender, No Organomegaly, Soft Bowel Sounds: Positive: Present, Hyperactive Neurological: Positive: Muscle Tone Normal, Fatigued Skin Exam: Normal Abd Pain Male Course/Dx - Course Course Of Treatment: advised to go to ER for new or worsening symptoms - Differential Dx/Clinical Impression Provider Diagnoses: acute diarrhea. ? C. Diff Colitis Discharge - Discharge Plan Condition: Stable Disposition: HOME Prescriptions: Ondansetron TAB* [Zofran Tab*] 4 mg PO Q6H PRN #10 tab PRN Reason: Nausea Patient Education Materials: Probiotic (By mouth), Clostridium Difficile Infection (ED), Acute Diarrhea (ED) Referrals: No Primary Care Phys,NOPCP [Primary Care Provider] - Additional Instructions: rest fluids motrin zofran if needed TO ER FOR WORSENING SYMPTOMS OR IF NOT IMPROVED IN 48 HOURS because you have been on 2 rounds of antibiotics recently I am concerned you may have C.diff stool tests are pending
--- NOTE | 2017-11-12 15:27 | UC ---
- Progress Note Progress Note: Positive C. Diff on stool. Will treat with flagyl. - Results/Orders Results/Orders: Toxigenic C. Diff Positive
== END 2017-11-11 23:32 | disposition home or self-care (01) ==
LOC: UCCORT 20:35
DX: A04.72 Enterocolitis due to Clostridium difficile, not specified as recurrent (principal)
CPT/HCPCS: 87493; 87502; 99212; A9270-GY; G0463

== ENCOUNTER 2019-03-10 10:18 | Emergency (ER) | payer OTHER ==
--- OUTSIDE RECORDS SUMMARY | 2019-03-10 10:36 | XMS REPORT | Continuity of Care Document ---
:1965 Author Organization [facility] Address [address], [place] [id number] Phone Care Team Providers Name Role Phone Janell ONEILL, December Unavailable Unavailable Allergies, Adverse Reactions, Alerts Substance Reaction Status SUMATRIPTAN SUCCINATE Active sumatriptan Active Sulfa (Sulfonamide Antibiotics) Active Medications Medication Instructions Dosage Effective Dates Status Comments (start - stop) omeprazole 20 mg take 1 capsule by - Active capsule,delayed oral route every release day before a meal x 14 days Daypro 600 mg tablet take 1 tablet by 600 MG - Active oral route every 12 hours with food Plaquenil 200 mg take 2 tablet by 400 MG - Active tablet oral route every day Vitamin D2 50,000 take 1 capsule by - Active unit capsule oral route every week for 3 months nortriptyline 10 mg take 1 capsule by 10 MG - Active capsule oral route every day Adderall XR 10 mg take 1 capsule by 10 MG - Active capsule,extended oral route every release day in the morning upon awakening Adderall 10 mg take 1 tablet by 10 MG - Active tablet oral route every day before breakfast aspirin 81 mg take 1/2 tablet by - Active tablet,delayed oral route every release day multivitamin tablet take 1 tablet by - Active oral route every day with food Fioricet 50 mg-300 take 1 - 2 capsule 1.00-2.00 - Active mg-40 mg capsule by oral route capsule every 4 hours as needed not to exceed 6 capsules per 24hrs Problems Condition Effective Dates (start - Clinical Status Comments stop) Systemic lupus erythematosus, unspecified 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 Systemic lupus erythematosus, unspecified Other intermediate (current) drug therapy Other overlap syndromes Systemic lupus erythematosus, unspecified Other intermediate (current) drug therapy SLE Sicca syndrome 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 longwall machine operator helper drug therapy Amnesia Headache SLE Sicca syndrome Other intermediate drug therapy Sicca syndrome Other intermediate drug therapy SLE Sicca syndrome SLE Other intermediate drug therapy Fatigue SLE Sicca syndrome Other intermediate drug therapy Anemia, unspecified 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 Coagulation defect Rheumatoid factor negative - Active Anemia Active Anxiety Active High Cholesterol Active Lupus Active Migraine Headaches Active Procedures Procedure Date ROUTINE VENIPUNCTURE COMPLETE CBC W/AUTO DIFF WBC RBC SED RATE, AUTOMATED C-REACTIVE PROTEIN ASSAY OF CREATININE TRANSFERASE (AST) (SGOT) ALANINE AMINO (ALT) (SGPT) ANTINUCLEAR ANTIBODIES COMPLEMENT, ANTIGEN OFFICE/OUTPATIENT VISIT, EST NUCLEAR ANTIGEN ANTIBODY DNA ANTIBODY NUCLEAR ANTIGEN ANTIBODY NUCLEAR ANTIGEN ANTIBODY NUCLEAR ANTIGEN ANTIBODY NUCLEAR ANTIGEN ANTIBODY NUCLEAR ANTIGEN ANTIBODY NUCLEAR ANTIGEN ANTIBODY NUCLEAR ANTIGEN ANTIBODY Results Test Name Date and Time Measure Units Reference Range Abnormal Flag Status Comments Panel Description: CBC Final WBC 15:09:00 8.1 10 3.7-10.1 Final RBC 15:09:00 4.23 10 3.50-5.50 Final HGB 15:09:00 13.3 g/dL 12.0-16.0 Final HCT 15:09:00 39.3 % 36.0-48.0 Final MCV 15:09:00 92.9 fL 80.0-100.0 Final MCH 15:09:00 31.5 pg 26.0-34.0 Final MCHC 15:09:00 33.9 g/dL 31.0-37.0 Final RDW 15:09:00 12.1 % 10.0-15.0 Final PLATELETS 15:09:00 243 10 150-500 Final MPV 15:09:00 8.0 fL 6.0-10.0 Final ROSE MARIE# 15:09:00 5.14 10 2.10-8.00 Final LYM# 15:09:00 2.10 10 1.00-5.00 Final MONO# 15:09:00 0.75 10 0.10-1.00 Final EOS# 15:09:00 0.1 10 0.0-0.5 Final BASO# 15:09:00 0.1 10 0.0-0.2 Final ROSE MARIE% 15:09:00 63.5 % 50.0-80.0 Final LYM% 15:09:00 26.0 % 25.0-50.0 Final MONO% 15:09:00 9.3 % 2.0-10.0 Final EOS% 15:09:00 0.6 % 0.0-5.0 Final BASO% 15:09:00 0.6 % 0.0-4.0 Final Panel Description: ESR Final ESR 15:09:00 <2 mm/Hr 0-20 Final Panel Description: ALT Final ALT 15:09:00 17 U/L 30-65 L Final Panel Description: AST Final AST 15:09:00 20 U/L 15-37 Final Panel Description: C3 Final C3 15:09:00 84.0 mg/dL 62.2-179.9 Final Panel Description: C4 Final C4 15:09:00 16.4 mg/dL 14.7-40.3 Final Panel Description: CREATININE Final CREATININE 15:09:00 0.6 mg/dL 0.6-1.2 Final eGFR 15:09:00 >60 mL/min/1.73m Final Panel Description: CRP Final CRP 15:09:00 <0.2 mg/dL 0.2-1.0 L Final Advance Directives Directive Yes / No Effective Date File Name No information Encounters Encounter Practice Location Reason(s) Diagnoses Date Provider Providers Description For Visit Copied on Encounter OFFICE/OUTPA Arthritis Arthritis SLE (chief Systemic lupus [facility] VISIT, Health Health complaint) erythematosus, PA-C December. Provider: GENO Estrella unspecifiedOth [address] [facility], [facility] er intermediate [facility] White CANE PUSHER, [facility] (current) drug [place], [address] [place] [address], therapy [place], [address], [place], [place], [place], [place], [place], [id number], [id number]. [id number], [place]. tel:+[phone] [place] tel:[phone] tel:[phone] Arthritis Arthritis [facility] PA-C December. [facility], [facility], [place], [place], [place], [id number], [id number], [place]. [place] tel:[phone] tel:[phone] Arthritis Arthritis [facility] PA-C December. [facility], [facility] [facility], [place], [place], [place], [id number], [id number], [place]. [place] tel:[phone] tel:[phone] Arthritis Arthritis Systemic lupus [facility] erythematosus, PA-C December. Provider: Delores Estrella unspecifiedOth 8 [facility], [facility] er intermediate [place] White CANE PUSHER, [facility] (current) drug [place], [address] [facility], therapyOther [place], [address], [place], overlap [place], [place], [place], syndromes [id number], [address]. [id number], [place]. tel:+[phone] [place] tel:[phone] tel:[phone] Arthritis Arthritis Systemic lupus [facility] erythematosus, PA-C December. 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 [id number], [place]. tel:+[phone] [place] tel:[phone] tel:[phone] Arthritis Arthritis Apr-2 [facility] Health 0-201 MD Andrade. Delores Estrella 8 [address] PLL[facility], 5[address] [facility], [place], [place], [place], [id number], [id number], [place]. [place] tel:[phone] tel:[phone] Arthritis Arthritis SLESicca Apr-1 [facility] Referring Health Health syndromeOther 6-201 MD Andrade. Provider: Delores [facility] longwall machine operator helper drug [facility], [facility] therapyAmnesia [facility] CANE [facility]US[facility], [facility] Headache [place], [address] [place], [place], [address], [place], [place], [place], [place], [place], [id number], [address]. [id number], [place]. tel:+ [place] tel:[phone] tel:[phone] Arthritis Arthritis SLESicca Nov-2 Bill CONNOLLY C Referring Health Health syndromeOther 0-201 Kendal Rayo Provider: Delores [facility] longwall machine operator helper drug 7 [facility] [facility], [facility] therapy [facility]USHER, [facility] [address], [address] [facility], [place], [address], [place], [place], [place], [place], [id number], [address]. [id number], [place]. 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 [facility], [facility] therapySLE [place] White CANE PUSHER, [facility] [address], [address] [place], [place], [address], [place], [place], [place], [place], [place], [id number], [address]. [id number], [place]. tel:+ [place] tel: [phone] tel:[phone] Arthritis Arthritis Sicca [facility] syndromeSLEOth PA-Linh December. Provider: Delores Estrella er longwall machine operator helper 7 [facility], [facility] drug [place] White CANE PUSHER, [facility] therapyFatigue [place], [address] [place], [place], [address], [place], [place], [place], [place], [place], [id number], [address]. [id number], [place]. tel:+ tel:[phone] tel:[phone] Arthritis Arthritis SLESicca [facility] syndromeOther 2 MD Andrade. Provider: Delores Estrella intermediate drug 7 [facility], [facility] therapyAnemia, [place] White CANE PUSHER, [place] unspecified [place], [address] [place], [place], [address], [place], [place], [place], [place], [place], [id number], [address]. [id number], [place]. tel:+ tel:[phone] tel:[phone] Arthritis Arthritis Mixed [facility] connective MD Andrade. Provider: Delores Estrella tissue 7 [address] [facility], [facility] diseaseSLESicc [place] White CANE PUSHER, [place] a [place], [address] [place], syndromeCoagul [place], [address], [place], ation defect [place], [place], [place], [place], [id number], [address]. [id number], [place]. tel:+ tel:[phone] tel:[phone] Family History Family Member Diagnosis Age At Onset Mother Rheumatoid Arthritis Sister Fibromyalgia Mother Fibromyalgia Father Fibromyalgia Immunizations Vaccine Date Status Comments No information Payers Payer name Insurance type Covered constitution party ID Authorization(s) [place] [employer] MC [id number] Social History Type Description Quantity Date Captured Comments Alcohol Use Details No Caffeine Use Details Unknown Tobacco Use Status Never smoked tobacco Smoking Status Never smoker Non-Smoking Tobacco : No Details Available : No Details Available 2018 Use Details Sex Female Vital Signs Date / Height Weight BMI Pulse Blood Temperature Respiratory Body Head BMI Pulse Inhaled Time: Rate Pressure Rate Surface Circumference percentile Ox Ox Area 66.50 132.00 20.9 118/80 -2019 in lbs 9 mm[Hg] 2:22 kg/m PM eter (2) Chief Complaint And Reason For Visit Most recent encounter only, dated '02/11/2019 14:20'. SLE (chief complaint). Description: The pain severity is 4/10. Patient is experiencing eye symptomsincluding dryness, dry mouth, photosensitivity and rash. Patient denies having generalized morning stiffness, hair loss, diarrhea, infection, fever, Raynaud's, oral ulcers (mouth sores) and pleuritic pain.The patient is currently taking Daypro with no side effects and Plaquenil with no side effects. Reason For Referral Reason For Referral No information Plan Of Treatment Date Type Action Status Referral Ordered: ordered MRI BRAIN W/DYE Appointment date/timeframe: 02/05/2018 Appointment Brittany Bhardwaj BOOKED History Of Present Illness Encounter Date Complaint History Of Present Illness SLE The pain severity is 4/10. Patient is experiencing eye symptoms including dryness, dry mouth, photosensitivity and rash. Patient denies having generalized morning stiffness, hair loss, diarrhea, infection, fever, Raynaud's, oral ulcers (mouth sores) and pleuritic pain.The patient is currently taking Daypro with no side effects and Plaquenil with no side effects. Functional Status Date Functional Assessment No information Medications Administered Medication Instructions Dosage Effective Dates (start - stop) Status Comments No information Instructions Date Instruction Additional Information Reviewed importance of compliance/adherence to medications prescribed Risks/benefits of medications reviewed Discussed importance of holding DMARDs/ biologics if patient develops an infection and to notify the treating physician update eye exam yearly Reviewed importance of compliance/adherence to medications prescribed Risks/benefits of medications reviewed Discussed importance of holding DMARDs/ biologics if patient develops an infection and to notify the treating physician update eye exam Reviewed importance of compliance/adherence to medications prescribed Risks/benefits of medications reviewed Discussed importance of holding DMARDs/ biologics if patient develops an infection and to notify the treating physician Reviewed importance of compliance/adherence to medications prescribed Exercise more Risks/benefits of medications reviewed Avoid sun and use high SPF sunblock call if symptoms worsen Discussed importance of holding DMARDs/ biologics if patient develops an infection and to notify the treating physician Discussed the need to hold DMARDS/Biologics before and after surgery/procedure. Reviewed importance of compliance/adherence to medications prescribed Risks/benefits of medications reviewed Discussed importance of holding DMARDs/ biologics if patient develops an infection and to notify the treating physician
--- OUTSIDE RECORDS SUMMARY | 2019-03-10 10:37 | XMS REPORT | Continuity of Care Document ---
:1965 External Reference #:[id number] Author Name Yan Remy N.P. Address [address] [address] [place] [address] Care Team Providers Name Role Phone Allison Oliva MD Care Team Information [employer] Unavailable Allison Oliva MD Primary Care Physician Unavailable Payers Date Identification Numbers Payment Provider Subscriber Policy Number: [id number] [facility] Bebeto Alex PayID: [id number] [place] [address] Problems Active Problems Provider Date Restless legs Zhang Walker [employer]ED [employer] Onset: 11/16/2016 Mixed hyperlipidemia Zhang Walker [employer] Onset: 11/16/2016 Allergic rhinitis Zhang Walker [employer] Onset: 11/16/2016 Systemic lupus erythematosus Zhang Walker [employer] Onset: 11/16/2016 Low back pain Zhang Walker D[employer] Onset: 11/16/2016 Attention deficit hyperactivity disorder, Zhang Walker [employer] 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/16/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 Anxiety state Zhang Walker [employer] Onset: 11/16/2016 Recurrent major depressive episodes Zhang Walker [employer] Onset: 11/16/2016 Insomnia Zhang Walker [employer] Onset: 11/16/2016 Irritable bowel syndrome Zhang Walker [employer] Onset: 11/16/2016 Refractory migraine with aura Zhang Walker [employer] Onset: 11/16/2016 Family History Date Family Member(s) Observation Comments Father 68 Father Hypercholesterolemia Father Hypertension [...] Fibromyalgia Social History Type Date Description Comments Sex Unknown Marital Status Legal Status: ETOH Use Rarely consumes alcohol Tobacco Use Start: Unknown Patient has never smoked Smoking Status Reviewed: 03/13/18 Patient has never smoked Allergies, Adverse Reactions, Alerts Active Allergies Reaction Severity Comments Date Imitrex 01/21/2016 Neurontin SEVERE FLUID RETENTION 09/23/2016 ALL Sulfa Drugs 12/21/2016 Medications Active Medications SIG Qnty Indications Ordering Date Provider Meloxicam take one tablet 60tabs G43.119 Allison Oliva, 01/18/2019 7.5mg Tablets by mouth twice a M.D. day-take with food [place] [facility] J30.9 Allison Oliva, 12/19/2018 0.65% Solution M.D. Nortriptyline HCL 2 cap by mouth 60caps G47.00 Allison Oliva, 10/10/2018 10mg at bedtime M.D. Capsules Zantac 150 Maximum 2 tabs by mouth 60tabs K21.0 Allison Oliva, 2018 Strength at bedtime M.D. 150mg Tablets Montelukast Sodium 1 by mouth every 90tabs J45.909 Allison Oliva, 2018 10mg day M.D. Tablets Vitamin D 1 by mouth every E55.9 Allison Oliva, 07/26/2018 2000Unit day M.D. Capsules Amphetamine-Dextroamph 1 tab by mouth @ 30tabs F90.0 Allison Oliva, 03/2018 etamine noon M.D. 10mg Tablets Plaquenil 1 tab by mouth 180tabs M32.9 Allison Oliva, 04/22/2016 200mg Tablets twice a M.D. day-rheumatology Amphetamine-Dextroamph 1 tab by mouth 30caps F90.0 Allison Oliva, 00 et ER every morning M.D. 10mg Caps ER 24HR Butalbital/Acetaminoph tab one q 6 hr 30tabs G43.119 [facility] M., en/Caffeine prn M.D. 50-325-40mg Tablets History Medications Diclofenac Sodium 1 Tab PO bid prn 60tabs M32.9 [facility] 12/19/2018 - Pain M. M.D. 01/17/[address] [facility] 5ml by mouth every 354ml J30.9 [facility] 11/14/2018 - Allergy day in am M. MTamaraDTamara 12/19/2018 5mg/5ML Solution Clindamycin HCL 1 tab by mouth 30caps J30.9 [facility], [facility] 10/10/2018 - twice a day M. M.D. 10/25/2018 150mg Capsules Fluconazole 1 tab by mouth 14tabs H92.01 [facility] 10/10/2018 - 100mg every day for 7 M., M.DTamara 11/13/2018 Tablets days then skip a week then restart Flonase Allergy 1 intranasal puff 47.400ml J30.9 [facility], [facility] 03/14/2018 - Relief twice a day M. M.DTamara 07/25/2018 50mcg/Act Suspension Cimetidine 1 tab by mouth at 90tabs K21.0 [facility] 02/06/2018 - 300mg bedtime M. M.DTamara 07/02/2018 Tablets K30 Vitamin D3 1 by mouth every 4tabs E55.9 [facility] 02/06/2018 - [id number] week M. MTamaraDTamara 07/26/2018 Tablets Amphetamine-Dextroamphe 2 tab by mouth @ 60tabs F90.0 [facility] 2017 - zulmaine waleska Yeager M.D. 01/05/2018 5mg Tablets Clindamycin HCL 1 cap by mouth 21caps M32.9 [facility], [facility] 10/19/2017 - 300mg three times a day M. MTamaraDTamara 10/26/2017 Capsules Ciprofloxacin HCL tab one by mouth 20tabs [facility] 06/29/2017 - 500mg twice a day M., M.D. 07/09/2017 Tablets Nitrofurantoin Monohyd tab one by mouth 10caps [facility]2017 - Macro twice a day M., M.D. 06/29/2017 100mg Capsules Fluconazole tab one now january 2tabs J01.80 [facility] 05/04/2017 - 150mg Tablets repeat in 5 days M., M.D. 11/02/2017 Azithromycin take two tablets 6tabs J01.80 [facility] 05/04/2017 - 250mg Tablets by mouth as one M., M.D. 05/09/2017 dose on the first day then take one daily thereafter x 4 days Meclizine HCL 1 by mouth every 8 30tabs H81.13 [facility] 03/15/2017 - 25mg Tablets hours as needed M., M.D. 03/29/2017 Linzess 1-2 one hour prior 45caps K59.00 [facility] 02/01/2017 - 145mcg Capsules to meals M., M.D. 11/02/2017 Fe Caps/Stool Softener O[facility]32.9 [facility]., M.D[facility] 11/02/2017 50-100mg Tablets Alprazolam 1 by mouth three 90tabs [facility] 12/21/2016 - 0.25mg Tablets times a day as M., M.D. 03/15/2017 needed Macrobid tab one by mouth 10caps [facility] 12/21/2016 - 100mg Capsules twice a day x 5 M., M.D. 12/26/2016 days Fluconazole tab one by mouth 10tabs [facility] 12/21/2016 - 100mg Tablets x10 days M., M.D. 01/01/2017 Pramipexole tab two by mouth 60tabs M32.9 [facility] 11/16/2016 - Dihydrochloride every at bedtime M., M.D. 11/02/2017 0.125mg Tablets Omeprazole please cancel this 30caps [facility] 11/16/2016 - 40mg Capsules DR Shobha M.D. 11/11/2016 Azithromycin take two tablets 6tabs J01.80 [facility] 10/12/2016 - 250mg Tablets by mouth as one M. M.D. 10/17/2016 dose on the first day then take one daily thereafter x 4 days Pramipexole tab one by mouth 30tabs M32.9 [facility] 09/23/2016 - Dihydrochloride every at bedtime M. M.DTamara 11/16/2016 0.125mg Tablets Amoxicillin 2 by mouth twice a 40tabs J20.9 [facility] 09/08/2016 - 500mg Tablets day M. M.DTamara 09/18/2016 Diflucan 1 tab by mouth 2tabs J20.9 [facility] 09/08/2016 - 150mg Tablets today and repeat M. MTamaraDTamara 09/16/2016 in 1 week as needed Neurontin On Hold 1-2 cap by 60caps M32.9 [facility] 08/09/2016 - 100mg Capsules mouth every night M. M.DTamara 09/23/2016 as needed Aspirin 1 by mouth every M32.9 [facility] 05/20/2016 - 81mg Tablets day M. M.D. 07/02/2018 D68.61 Amphetamine-Dextroamphetamine 1 tab by 30tabs F90.0 [facility] - 10mg Tablets mouth @ M. MTamaraDTamara 11/29/2017 noon Tranexamic Acid N92.0 Unknown - 650mg Tablets 08/02/2016 Lorazepam 1/2-1 tab 30tabs G47.00 [facility] - 0.5mg Tablets by mouth M. MTamaraD. 10/12/2016 every night as needed F41.9 M32.9 Pramipexole M32.9 [facility], - Dihydrochloride M.D. 08/02/2016 0.5mg Tablets Azathioprine One PO qd Per Unknown - 50mg Tablets Rheum 11/02/2017 Immunizations CPT Code Status Date Vaccine Lot # [id number] Refused 07/26/2018 Flu Vaccine Vital Signs Date Vital Result Comment 02/15/2019 10:02am BP Systolic 118 mmHg BP Diastolic 72 mmHg Height 67 inches 5'7" Weight 136.00 lb BMI (Body Mass Index) 21.3 kg/m2 01/18/2019 10:02am BP Systolic 118 mmHg BP Diastolic 62 mmHg Height 67 inches 5'7" Weight 139.00 lb BMI (Body Mass Index) 21.8 kg/m2 Heart Rate 107 /min Respiratory Rate 16 /min 12/19/2018 10:08am BP Systolic 124 mmHg BP Diastolic 68 mmHg Height 67 inches 5'7" Weight 132.00 lb BMI (Body Mass Index) 20.7 kg/m2 Heart Rate 86 /min Respiratory Rate 16 /min 11/14/2018 9:53am BP Systolic 118 mmHg BP Diastolic 62 mmHg Height 67 inches 5'7" Weight 132.00 lb BMI (Body Mass Index) 20.7 kg/m2 Heart Rate 101 /min Respiratory Rate 16 /min 10/10/2018 10:13am BP Systolic 124 mmHg BP Diastolic 72 mmHg Height 67 inches 5'7" Weight 133.00 lb BMI (Body Mass Index) 20.8 kg/m2 Heart Rate 111 /min Respiratory Rate 16 /min 08/21/2018 10:29am BP Systolic 118 mmHg BP Diastolic 70 mmHg Height 67 inches 5'7" Weight 133.00 lb BMI (Body Mass Index) 20.8 kg/m2 Heart Rate 95 /min Respiratory Rate 16 /min 07/26/2018 10:09am BP Systolic 118 mmHg BP Diastolic 70 mmHg Height 67 inches 5'7" Weight 133.00 lb BMI (Body Mass Index) 20.8 kg/m2 Heart Rate 95 /min Respiratory Rate 16 /min 06/20/2018 10:09am BP Systolic 106 mmHg BP Diastolic 62 mmHg Height 67 inches 5'7" Weight 135.00 lb BMI (Body Mass Index) 21.1 kg/m2 Heart Rate 88 /min Respiratory Rate 14 /min 05/09/2018 10:36am BP Systolic 128 mmHg BP Diastolic 70 mmHg Height 67 inches 5'7" Weight 136.00 lb BMI (Body Mass Index) 21.3 kg/m2 Heart Rate 94 /min Respiratory Rate 16 /min 04/11/2018 10:04am BP Systolic 130 mmHg BP Diastolic 70 mmHg Height 67 inches 5'7" Weight 132.00 lb BMI (Body Mass Index) 20.7 kg/m2 Heart Rate 87 /min Respiratory Rate 16 /min 03/14/2018 10:08am BP Systolic 118 mmHg BP Diastolic 62 mmHg Height 67 inches 5'7" Weight 135.00 lb BMI (Body Mass Index) 21.1 kg/m2 Heart Rate 87 /min Respiratory Rate 18 /min 02/06/2018 1:05pm BP Systolic 108 mmHg BP Diastolic 68 mmHg Height 67 inches 5'7" Weight 137.00 lb BMI (Body Mass Index) 21.5 kg/m2 Heart Rate 83 /min Respiratory Rate 18 /min 01/05/2018 10:02am BP Systolic 116 mmHg BP Diastolic 60 mmHg Height 67 inches 5'7" Weight 139.00 lb BMI (Body Mass Index) 21.8 kg/m2 Heart Rate 94 /min Respiratory Rate 16 /min 11/29/2017 10:58am BP Systolic 110 mmHg BP Diastolic 64 mmHg Height 67 inches 5'7" Weight 137.00 lb BMI (Body Mass Index) 21.5 kg/m2 Heart Rate 109 /min Respiratory Rate 18 /min 10/19/2017 9:42am BP Systolic 110 mmHg BP Diastolic 60 mmHg Height 67 inches 5'7" Weight 139.00 lb BMI (Body Mass Index) 21.8 kg/m2 Heart Rate 119 /min Respiratory Rate 18 /min 08/23/2017 9:32am BP Systolic 110 mmHg BP Diastolic 68 mmHg Height 67 inches 5'7" Weight 141.00 lb BMI (Body Mass Index) 22.1 kg/m2 Heart Rate 84 /min Respiratory Rate 16 /min 07/26/2017 9:36am BP Systolic 120 mmHg BP Diastolic 78 mmHg Height 67 inches 5'7" Weight 144.00 lb BMI (Body Mass Index) 22.6 kg/m2 Heart Rate 97 /min Respiratory Rate 16 /min 06/28/2017 9:32am BP Systolic 108 mmHg BP Diastolic 62 mmHg Height 67 inches 5'7" Weight 143.00 lb BMI (Body Mass Index) 22.4 kg/m2 Heart Rate 86 /min Respiratory Rate 18 /min 06/07/2017 2:11pm BP Systolic 118 mmHg BP Diastolic 95 mmHg Height 67 inches 5'7" Weight 138.00 lb BMI (Body Mass Index) 21.6 kg/m2 Heart Rate 98 /min Respiratory Rate 16 /min 05/31/2017 11:23am BP Systolic 100 mmHg BP Diastolic 60 mmHg Height 67 inches 5'7" Weight 138.00 lb BMI (Body Mass Index) 21.6 kg/m2 Heart Rate 82 /min Respiratory Rate 18 /min 05/04/2017 9:36am BP Systolic 110 mmHg BP Diastolic 60 mmHg Height 67 inches 5'7" Weight 145.00 lb BMI (Body Mass Index) 22.7 kg/m2 Heart Rate 98 /min Body Temperature 97.6 F Respiratory Rate 16 /min 03/15/2017 9:46am BP Systolic 118 mmHg BP Diastolic 70 mmHg Height 67 inches 5'7" Weight 137.00 lb BMI (Body Mass Index) 21.5 kg/m2 Heart Rate 97 /min Respiratory Rate 16 /min 02/01/2017 9:53am BP Systolic 126 mmHg BP Diastolic 64 mmHg Height 67 inches 5'7" Weight 137.00 lb BMI (Body Mass Index) 21.5 kg/m2 Heart Rate 68 /min Respiratory Rate 16 /min 12/21/2016 9:46am BP Systolic 118 mmHg BP Diastolic 72 mmHg Height 67 inches 5'7" Weight 140.00 lb BMI (Body Mass Index) 21.9 kg/m2 Heart Rate 90 /min Respiratory Rate 18 /min 11/16/2016 9:50am BP Systolic 118 mmHg BP Diastolic 72 mmHg Height 67 inches 5'7" Weight 141.00 lb BMI (Body Mass Index) 22.1 kg/m2 Heart Rate 104 /min Respiratory Rate 18 /min 10/12/2016 9:52am BP Systolic 118 mmHg BP Diastolic 62 mmHg Height 67 inches 5'7" Weight 136.00 lb BMI (Body Mass Index) 21.3 kg/m2 Heart Rate 70 /min Respiratory Rate 18 /min 09/23/2016 10:17am BP Systolic 108 mmHg BP Diastolic 62 mmHg Height 67 inches 5'7" Weight 139.00 lb BMI (Body Mass Index) 21.8 kg/m2 Heart Rate 83 /min Respiratory Rate 20 /min 09/08/2016 10:15am BP Systolic 100 mmHg BP Diastolic 72 mmHg Height 67 inches 5'7" Weight 139.00 lb BMI (Body Mass Index) 21.8 kg/m2 Heart Rate 72 /min Respiratory Rate 18 /min 08/09/2016 9:58am BP Systolic 108 mmHg BP Diastolic 68 mmHg Height 67 inches 5'7" Weight 137.00 lb BMI (Body Mass Index) 21.5 kg/m2 Heart Rate 61 /min Respiratory Rate 16 /min 06/24/2016 9:37am BP Systolic 104 mmHg BP Diastolic 66 mmHg Height 67 inches 5'7" Weight 136.00 lb BMI (Body Mass Index) 21.3 kg/m2 Heart Rate 86 /min Respiratory Rate 20 /min 05/20/2016 9:34am BP Systolic 116 mmHg BP Diastolic 68 mmHg Height 67 inches 5'7" Weight 136.00 lb BMI (Body Mass Index) 21.3 kg/m2 Heart Rate 74 /min Respiratory Rate 20 /min 04/22/2016 9:50am BP Systolic 124 mmHg BP Diastolic 76 mmHg Height 67 inches 5'7" Weight 139.00 lb BMI (Body Mass Index) 21.8 kg/m2 Heart Rate 84 /min Respiratory Rate 20 /min 03/18/2016 9:52am BP Systolic 112 mmHg BP Diastolic 82 mmHg Height 67 inches 5'7" Weight 139.00 lb BMI (Body Mass Index) 21.8 kg/m2 Heart Rate 74 /min Respiratory Rate 18 /min 02/25/2016 11:42am BP Systolic 116 mmHg BP Diastolic 80 mmHg Height 67 inches 5'7" Weight 137.00 lb BMI (Body Mass Index) 21.5 kg/m2 Heart Rate 72 /min Respiratory Rate 18 /min 02/19/2016 9:45am BP Systolic 104 mmHg BP Diastolic 60 mmHg Height 67 inches 5'7" Weight 137.00 lb BMI (Body Mass Index) 21.5 kg/m2 Heart Rate 72 /min Respiratory Rate 16 /min 01/21/2016 9:41am BP Systolic 126 mmHg BP Diastolic 64 mmHg Height 67 inches 5'7" Weight 140.00 lb BMI (Body Mass Index) 21.9 kg/m2 Heart Rate 105 /min Body Temperature 97.3 F Respiratory Rate 18 /min Results Test Date Facility Test Result H/L Range Note Barbiturates Panel 05/09/2018 [facility] Butalbital Negative Abnormal 100 1, 2 By LC/MS/MS Inconsi <SEE NOTE> ng/mL Pentobarbital Negative ng/mL N 100 Phenobarbital Negative ng/mL N 100 Secobarbital Negative ng/mL N 100 3 Benzodiazepines 05/09/2018 [facility] 2-Hydroxyethylflurazepam Negative N 10 Panel By LC/MS/MS ng/mL 7-Aminoclonazepam Negative ng/mL N 10 Alprazolam Negative ng/mL N 10 Chlordiazepoxide Negative ng/mL N 10 Clonazepam Negative ng/mL N 10 Desalkylflurazepam Negative ng/mL N 10 Diazepam Negative ng/mL N 10 Lorazepam Negative ng/mL N 10 Midazolam Negative ng/ml N 10 Nordiazepam Negative ng/mL N 10 Alpha-hydroxyalprazolam Negative ng/mL N 10 Alpha-Hydroxymidazolam Negative ng/mL N 10 Alpha-Hydroxytriazolam Negative ng/mL N 10 Oxazepam Negative ng/mL N 10 Prazepam Negative ng/mL N 10 Temazepam Negative ng/mL N 10 4 Buprenorphine Panel By 05/09/2018 [facility] Buprenorphine Negative ng/mL N 5 LC/MS/MS Naloxone Negative ng/mL N 10 Norbuprenorphine Negative ng/mL N 5 5 Methadone Panel By 05/09/2018 [facility] Eddp Negative ng/mL N 10 LC/MS/MS Methadone Negative ng/mL N 10 6 Antidepressants Panel 05/09/2018 [facility] Amitriptyline Negative ng/mL N 20 By LC/MS/MS Clomipramine Negative ng/mL N 20 Desipramine Negative ng/mL N 20 Doxepin Negative ng/mL N 20 Fluoxetine Negative ng/mL N 20 Imipramine Negative ng/mL N 20 Norclomipramine Negative ng/mL N 20 Nordoxepin Negative ng/mL N 20 Nortriptyline Negative ng/mL N 20 Sertraline Negative ng/mL N 20 Trimipramine Negative ng/mL N 20 7 Urine DRG SCR 05/09/2018 [facility] Amphetamine NEGATIVE N 1000 (12PNL-PM) Barbiturate NEGATIVE N 200 Benzodiazepine NEGATIVE N 200 Buprenorphine NEGATIVE N 15 Cannabinoid NEGATIVE N 50 Cocaine NEGATIVE N 300 Methadone NEGATIVE N 300 Opiate NEGATIVE N 300 Oxycodone NEGATIVE N 300 Phencyclidine NEGATIVE N 25 8 Opiates Panel By 05/09/2018 [facility] 6-Kapil (Heroin Negative ng/ mL N 5 LC/MS/MS Metabolite) Codeine Negative ng/mL N 50 Hydrocodone Negative ng/mL N 50 Hydromorphone Negative ng/mL N 50 Morphine Negative ng/mL N 50 Norhydrocodone Negative ng/mL N 50 Noroxycodone Negative ng/mL N 50 Noroxymorphone Negative ng/mL N 50 Oxycodone Negative ng/mL N 50 Oxymorphone Negative ng/mL N 50 9 Specimen Validity 05/09/2018 [facility] Creatinine, Urine 44 mg/ dL N >20 Panel Color YELLOW N Yellow pH 7.3 N 5.0-8.0 Specific Fackler 1.013 N 1.001-1.035 10 Amphetamine Panel By 05/09/2018 [facility] Amphetamine 1105 Positive Co N 50 11 LC/MS/MS <SEE NOTE> ng/mL Methamphetamine Negative ng/mL N 50 Mdma (Ecstasy) Negative ng/mL N 50 Mda Negative ng/ml N 50 Mdea Negative ng/mL N 50 12 Laboratory test 05/09/2018 [facility] Cocaine Panel By Negative ng/mL N 50 13 finding LC/MS/MS Tramadol Negative ng/mL N 5 14 [id number] Negative ng/mL N 5 15 Gabapentin Negative ng/mL N 100 16 Ethyl Glucuronide 05/09/2018 [facility] Ethyl Glucuronide Negative ng/mL N 500 PDF SEE IMAGE Urine Drug [facility] 05/09/2018 [facility] [id number] < pending> Ethyl Glucuronide <pending> Laboratory test 01/22/2018 [facility] Clotest SEE RESULT 17 finding BELOW Laboratory test 07/26/2017 [facility] Hemoglobin A1c 5.0 % N 4.0-5.6 18 finding (Glyco HGB) Vitamin D Total 25(Oh) 19.0 ng/mL Low 20-50 19 Erythrocyte Sed Rate 10 mm/Hr N 0-14 20 CRP High Sensitivity 1.38 mg/L N 21 Lipid Profile (Trig/Chol/HDL) 07/26/2017 [facility] Triglycerides 99 mg /dL N 22 Cholesterol 268 mg/dL N 23 HDL Cholesterol 61.0 mg/dL N 24 LDL Cholesterol 187 mg/dL N 25 Laboratory test 07/26/2017 [facility] TSH (Thyroid 2.10 mcIU/mL N 0.34-5.60 26 finding Stim Horm) Comp Metabolic 07/26/2017 [facility] Sodium 136 mmol/L N 133-145 Panel Potassium 4.0 mmol/L N 3.5-5.0 Chloride 104 mmol/L N 101-111 Co2 Carbon Dioxide 23 mmol/L N 22-32 Anion Gap 9 mmol/L N 2-11 Glucose 78 mg/dL N 70-100 Blood Urea Nitrogen 14 mg/dL N 6-24 Creatinine 0.68 mg/dL N 0.51-0.95 BUN/Creatinine Ratio 20.6 High 8-20 Calcium 9.1 mg/dL N 8.6-10.3 Total Protein 6.9 g/dL N 6.4-8.9 Albumin 4.2 g/dL N 3.2-5.2 Globulin 2.7 g/dL N 2-4 Albumin/Globulin Ratio 1.6 N 1-3 Total Bilirubin 0.30 mg/dL N 0.2-1.0 Alkaline Phosphatase 44 U/L N 34-104 Alt 12 U/L N 7-52 Ast 17 U/L N 13-39 Egfr Non- 92.0 N >60 Egfr 118.3 N >60 27 CBC Auto Diff 07/26/2017 [facility] White Blood Count 5.3 10^3/uL N 3.5-10.8 Red Blood Count 4.38 10^6/uL N 4.0-5.4 Hemoglobin 12.1 g/dL N 12.0-16.0 Hematocrit 37 % N 35-47 Mean Corpuscular Volume 84 fL N 80-97 Mean Corpuscular Hemoglobin 28 pg N 27-31 Mean Corpuscular HGB Conc 33 g/dL N 31-36 Red Cell Distribution Width 19 % High 10.5-15 Platelet Count 257 10^3/uL N 150-450 Mean Platelet Volume 9 um3 N 7.4-10.4 Abs Neutrophils 3.5 10^3/uL N 1.5-7.7 Abs Lymphocytes 1.2 10^3/uL N 1.0-4.8 Abs Monocytes 0.5 10^3/uL N 0-0.8 Abs Eosinophils 0.1 10^3/uL N 0-0.6 Abs Basophils 0 10^3/uL N 0-0.2 Abs Nucleated RBC 0 10^3/uL N Granulocyte % 65.2 % N 38-83 Lymphocyte % 23.4 % Low 25-47 Monocyte % 9.8 % High 1-9 Eosinophil % 1.0 % N 0-6 Basophil % 0.6 % N 0-2 Nucleated Red Blood Cells % 0 N CBC Auto Diff 06/03/2017 [facility] White Blood Count 4.7 10^3/uL N 3.5-10.8 Red Blood Count 4.25 10^6/uL N 4.0-5.4 Hemoglobin 11.0 g/dL Low 12.0-16.0 Hematocrit 34 % Low 35-47 Mean Corpuscular Volume 79 fL Low 80-97 Mean Corpuscular Hemoglobin 26 pg Low 27-31 Mean Corpuscular HGB Conc 33 g/dL N 31-36 Red Cell Distribution Width 19 % High 10.5-15 Platelet Count 265 10^3/uL N 150-450 Mean Platelet Volume 9 um3 N 7.4-10.4 Abs Neutrophils 2.9 10^3/uL N 1.5-7.7 Abs Lymphocytes 1.3 10^3/uL N 1.0-4.8 Abs Monocytes 0.3 10^3/uL N 0-0.8 Abs Eosinophils 0.1 10^3/uL N 0-0.6 Abs Basophils 0 10^3/uL N 0-0.2 Abs Nucleated RBC 0 10^3/uL N Granulocyte % 61.6 % N 38-83 Lymphocyte % 27.8 % N 25-47 Monocyte % 7.2 % N 1-9 Eosinophil % 2.6 % N 0-6 Basophil % 0.8 % N 0-2 Nucleated Red Blood Cells % 0 N Laboratory test 06/03/2017 [facility] Erythrocyte Sed Rate 11 mm/Hr N 0-14 finding Thyroglobulin AB <1.8 IU/mL N <4.0 28 Factor 8 Profile 06/03/2017 [facility] Coagulation Factor VIII 65 % N 55 - 200 29 Activi von Willebrand Factor Antigen 72 % N 55 - 200 30 VonWillibrand Factor Activity 67 % N 55 - 200 31 von Willebrand Panel Interp See Comment N 32 Laboratory test 06/03/2017 [facility] T3 Reverse 24 ng/dL N 10-24 33 finding Laboratory test 06/03/2017 [facility] C Reactive < 1.00 mg/L N < 5.00 34 finding Protein TSH (Thyroid Stim Horm) 1.31 mcIU/mL N 0.34-5.60 Free T3 2.70 pg/mL N 2.5-3.9 Free T4 (Free Thyroxine) 0.95 ng/dL N 0.61-1.12 Total T3 0.73 ng/mL Low 0.87-1.78 Thyroid Peroxidase Antibodies 0.63 IU/mL N <9 Creatinine 06/03/2017 [facility] Creatinine 0.71 mg/dL N 0.51-0.95 Egfr Non- 87.5 N >60 Egfr 112.5 N >60 35 Comp Metabolic Panel 06/03/2017 [facility] Sodium 137 mmol/L N 133- 145 Potassium 3.9 mmol/L N 3.5-5.0 Chloride 104 mmol/L N 101-111 Co2 Carbon Dioxide 27 mmol/L N 22-32 Anion Gap 6 mmol/L N 2-11 Glucose 87 mg/dL N 70-100 Blood Urea Nitrogen 14 mg/dL N 6-24 Creatinine 0.71 mg/dL N 0.51-0.95 BUN/Creatinine Ratio 19.7 N 8-20 Calcium 9.4 mg/dL N 8.6-10.3 Total Protein 6.8 g/dL N 6.4-8.9 Albumin 4.5 g/dL N 3.2-5.2 Globulin 2.3 g/dL N 2-4 Albumin/Globulin Ratio 2.0 N 1-3 Total Bilirubin 0.30 mg/dL N 0.2-1.0 Alkaline Phosphatase 42 U/L N 34-104 Alt 11 U/L N 7-52 Ast 16 U/L N 13-39 Egfr Non- 87.5 N >60 Egfr 112.5 N >60 36 Laboratory test 11/03/2016 [facility] Urine Culture And SEE RESULT 37, 38 finding Sensitivities BELOW CBC Auto Diff 07/21/2016 [facility] White Blood Count 5.3 10^3/uL N 3.5-1 39 0.8 Red Blood Count 3.92 10^6/uL Low 4.0-5.4 Hemoglobin 9.9 g/dL Low 12.0-16.0 Hematocrit 31 % Low 35-47 Mean Corpuscular Volume 78 fL Low 80-97 Mean Corpuscular Hemoglobin 25 pg Low 27-31 Mean Corpuscular HGB Conc 32 g/dL N 31-36 Red Cell Distribution Width 16 % High 10.5-15 Platelet Count 290 10^3/uL N 150-450 Mean Platelet Volume 9 um3 N 7.4-10.4 Abs Neutrophils 3.2 10^3/uL N 1.5-7.7 Abs Lymphocytes 1.4 10^3/uL N 1.0-4.8 Abs Monocytes 0.5 10^3/uL N 0-0.8 Abs Eosinophils 0.1 10^3/uL N 0-0.6 Abs Basophils 0 10^3/uL N 0-0.2 Abs Nucleated RBC 0 10^3/uL N Granulocyte % 60.2 % N 38-83 Lymphocyte % 27.0 % N 25-47 Monocyte % 10.3 % High 1-9 Eosinophil % 1.6 % N 0-6 Basophil % 0.9 % N 0-2 Nucleated Red Blood Cells % 0 N Laboratory test 07/17/2016 [facility] Urine Culture SEE RESULT 40 , 41 finding BELOW CBC Auto Diff 02/19/2016 [facility] White Blood 6.6 10^3/uL N 3.5- 10. Count 8 Red Blood Count 3.97 10^6/uL Low 4.0-5.4 Hemoglobin 11.1 g/dL Low 12.0-16.0 Hematocrit 33 % Low 35-47 Mean Corpuscular Volume 84 fL N 80-97 Mean Corpuscular Hemoglobin 28 pg N 27-31 Mean Corpuscular HGB Conc 33 g/dL N 31-36 Red Cell Distribution Width 14 % N 10.5-15 Platelet Count 240 10^3/uL N 150-450 Mean Platelet Volume 10 um3 N 7.4-10.4 Abs Neutrophils 4.4 10^3/uL N 1.5-7.7 Abs Lymphocytes 1.5 10^3/uL N 1.0-4.8 Abs Monocytes 0.5 10^3/uL N 0-0.8 Abs Eosinophils 0.1 10^3/uL N 0-0.6 Abs Basophils 0 10^3/uL N 0-0.2 Abs Nucleated RBC 0 10^3/uL N Granulocyte % 66.8 % N 38-83 Lymphocyte % 22.8 % Low 25-47 Monocyte % 8.1 % N 1-9 Eosinophil % 1.9 % N 0-6 Basophil % 0.4 % N 0-2 Nucleated Red Blood Cells % 0 N Iron & Iron Binding Capacity 02/19/2016 [facility] Iron 35 g/dL Low 50-212 Unsaturated Iron Binding 315 g/dL N Total Iron Binding Capacity 350 g/dL N 250-450 % Iron Saturation 10 % Low 15-55 Lipid Profile (Trig/Chol/HDL) 02/19/2016 [facility] Triglycerides 55 mg /dL N 42 Cholesterol 213 mg/dL N 43 HDL Cholesterol 63.5 mg/dL N 44 LDL Cholesterol 139 mg/dL N 45 Laboratory test 02/19/2016 [facility] Rheumatoid Factor <15 IU/mL N < 15 46 finding TSH (Thyroid Stim Horm) 0.73 ?IU/mL N 0.34-5.60 47 Free T4 (Free Thyroxine) 0.92 ng/dL N 0.61-1.12 48 Vitamin D, 1,25 Dihydroxy 61 pg/mL N 18-78 49 Lyme Disease Serology Negative N Negative 50 Hepatitis Acute 02/19/2016 [facility] Hepatitis C Nonreactive N Nonreactive 51 PNL (CMC) Antibody Hepatitis A AB Igm Nonreactive N Nonreactive 52 Hepatitis B Core AB Igm Nonreactive N Nonreactive 53 Hepatitis B Surface Ag Nonreactive N Nonreactive 54 Laboratory test 02/19/2016 [facility] CRP High Sensitivity 0.89 mg/L N 55 finding Erythrocyte Sed Rate 7 mm/Hr N 0-14 56 Connective Tissue 02/19/2016 [facility] Anti-Nuclear Antibody 1.5 U High 57 Panel Cyclic Citrullinated Peptide 17.8 U N 58 Interpretation See Comment N 59 Comp Metabolic Panel 02/19/2016 [facility] Sodium 137 mmol/L N 133- 145 Potassium 3.5 mmol/L N 3.5-5.0 Chloride 105 mmol/L N 101-111 Co2 Carbon Dioxide 26 mmol/L N 22-32 Anion Gap 6 mmol/L N 2-11 Glucose 96 mg/dL N 70-100 Blood Urea Nitrogen 15 mg/dL N 6-24 Creatinine 0.64 mg/dL N 0.51-0.95 BUN/Creatinine Ratio 23.4 High 8-20 Calcium 8.7 mg/dL N 8.6-10.3 Total Protein 6.4 g/dL N 6.4-8.9 Albumin 4.2 g/dL N 3.2-5.2 Globulin 2.2 g/dL N 2-4 Albumin/Globulin Ratio 1.9 N 1-3 Total Bilirubin 0.40 mg/dL N 0.2-1.0 Alkaline Phosphatase 39 U/L N 34-104 Alt 13 U/L N 7-52 Ast 14 U/L N 13-39 Egfr Non- 99.0 N >60 Egfr 127.4 N >60 60 1 Prescribed Medications: Amphetamine (Amphetamine), Dextroamphetamine sulfate (Amphetamine), Butalbital (Butalbital), Acetaminophen (Acetaminophen), ASPIRIN, PLAQUENIL ( Lipids) 2 Negative Inconsistent 3 Prescribed Medications: Amphetamine (Amphetamine), Dextroamphetamine sulfate (Amphetamine), Butalbital (Butalbital), Acetaminophen (Acetaminophen), ASPIRIN, PLAQUENIL ( Lipids) 4 Prescribed Medications: Amphetamine (Amphetamine), Dextroamphetamine sulfate (Amphetamine), Butalbital (Butalbital), Acetaminophen (Acetaminophen), ASPIRIN, PLAQUENIL ( Lipids) 5 Prescribed Medications: Amphetamine (Amphetamine), Dextroamphetamine sulfate (Amphetamine), Butalbital (Butalbital), Acetaminophen (Acetaminophen), ASPIRIN, PLAQUENIL ( Lipids) 6 Prescribed Medications: Amphetamine (Amphetamine), Dextroamphetamine sulfate (Amphetamine), Butalbital (Butalbital), Acetaminophen (Acetaminophen), ASPIRIN, PLAQUENIL ( Lipids) 7 Prescribed Medications: Amphetamine (Amphetamine), Dextroamphetamine sulfate (Amphetamine), Butalbital (Butalbital), Acetaminophen (Acetaminophen), ASPIRIN, PLAQUENIL ( Lipids) 8 Prescribed Medications: Amphetamine (Amphetamine), Dextroamphetamine sulfate (Amphetamine), Butalbital (Butalbital), Acetaminophen (Acetaminophen), ASPIRIN, PLAQUENIL ( Lipids) 9 Prescribed Medications: Amphetamine (Amphetamine), Dextroamphetamine sulfate (Amphetamine), Butalbital (Butalbital), Acetaminophen (Acetaminophen), ASPIRIN, PLAQUENIL ( Lipids) 10 Prescribed Medications: Amphetamine (Amphetamine), Dextroamphetamine sulfate (Amphetamine), Butalbital (Butalbital), Acetaminophen (Acetaminophen), ASPIRIN, PLAQUENIL ( Lipids) 11 1105 Positive Consistent Amphetamine is a metabolite of methamphetamine or lisdexamfetamine. Its presence is consistent with methamphetamine (Desoxyn) medication. Amphetamine ( Adderall) is also available as a prescription medication. 12 Prescribed Medications: Amphetamine (Amphetamine), Dextroamphetamine sulfate (Amphetamine), Butalbital (Butalbital), Acetaminophen (Acetaminophen), ASPIRIN, PLAQUENIL ( Lipids) 13 Prescribed Medications: Amphetamine (Amphetamine), Dextroamphetamine sulfate (Amphetamine), Butalbital (Butalbital), Acetaminophen (Acetaminophen), ASPIRIN, PLAQUENIL ( Lipids) 14 Prescribed Medications: Amphetamine (Amphetamine), Dextroamphetamine sulfate (Amphetamine), Butalbital (Butalbital), Acetaminophen (Acetaminophen), ASPIRIN, PLAQUENIL ( Lipids) 15 Prescribed Medications: Amphetamine (Amphetamine), Dextroamphetamine sulfate (Amphetamine), Butalbital (Butalbital), Acetaminophen (Acetaminophen), ASPIRIN, PLAQUENIL ( Lipids) 16 Prescribed Medications: Amphetamine (Amphetamine), Dextroamphetamine sulfate (Amphetamine), Butalbital (Butalbital), Acetaminophen (Acetaminophen), ASPIRIN, PLAQUENIL ( Lipids) 17 SEE RESULT BELOW Name: BEBETO ALEX : [address]: Ora Cameron DO Acct: [id number] Unit: [id number] AGE: 52 Location: [facility] Re01/22/18 SEX: F Status: REG REF SPEC: [id number] ODESSA: 01/22/18-[address] [facility] [address]: Ora Cameron DO REQ: [id number] RECD: 01/22/18-1606 STATUS: TREVOR KULKARNI DR: Allison Oliva MD _ SOURCE: GAS [facility]: ORDERED: Clotest Procedure Result Reported Site Clotest Final 01/23/18740 ML Clotest Negative * ML - Main Lab . END OF REPORT DEPARTMENT OF PATHOLOGY, [address] [place] [address] Toro Sheldon M.D. Director [facility] # [id number] 18 Therapeutic target for the treatment of diabetes mellitus patients is <7% HBA1C, and in selective patients <6.0%. Please refer to [place] [employer] diabetic care guidelines for further information. 19 [id number] 21 Low risk: <1.00 Average risk: 1.00-3.00 High risk: >3.00 22 Desirable: <150 Borderline High: 150-199 High: 200-499 Very High: >500 23 Desirable: <200 Borderline High: 200-239 High: >239 24 Low: <40 Desirable: 40-60 High: >60 25 Desirable: <100 Near Optimal: 100-129 Borderline High: 130-159 High: 160-189 Very High: >189 26 [id number] 27 Because ethnic data is not always readily [...] 15-29 5 Kidney failure <15 (or dialysis) 28 ADDITIONAL INFORMATION The thyroglobulin antibody testing method is an immunoenzymatic assay manufactured by [employer]. and performed on the Libratone DXI 800. Values obtained from different assay methods or kits may be different and cannot be used interchangeably. The results cannot be interpreted as absolute evidence for the presence or absence of malignant disease. Test Performed by: [facility] - [address] [address] 29 ADDITIONAL INFORMATION This test has been modified from the cisco consultant's instructions. Its performance characteristics were determined by [facility] in a manner consistent with CLIA requirements. This test has not been cleared or approved by the U.S. Food and Drug Administration. 30 ADDITIONAL INFORMATION This test has been modified from the cisco consultant's instructions. Its performance characteristics were determined by [facility] in a manner consistent with CLIA requirements. This test has not been cleared or approved by the U.S. Food and Drug Administration. 31 ADDITIONAL INFORMATION This test has been modified from the cisco consultant's instructions. Its performance characteristics were determined by [facility] in a manner consistent with CLIA requirements. This test has not been cleared or approved by the U.S. Food and Drug Administration. 32 No laboratory evidence of von Willebrand's disease [...] not reviewed by physician. Test Performed by: [facility] - [facility] [address] [place] [address] 33 ADDITIONAL INFORMATION This test was developed and its performance characteristics determined by [facility] in a manner consistent with CLIA requirements. This test has not been cleared or approved by the U.S. Food and Drug Administration. Test Performed by: [facility] - [place] [id number] 34 Acute inflammation: >10.00 35 Because ethnic data is not always readily [...] 15-29 5 Kidney failure <15 (or dialysis) 36 Because ethnic data is not always readily [...] 15-29 5 Kidney failure <15 (or dialysis) 37 [id number] 38 SEE RESULT BELOW Name: ISAIBEBETO M : [address]: Sayra Allen MD Acct: [id number] Unit: [id number] AGE: 51 Location: [facility] Re11/03/16 SEX: F Status: DEP ER SPEC: [id number] ODESSA: 11/03/[address] [facility] [address]: Suzy Owusu NP REQ: [id number] RECD: 11/04/16 STATUS: TREVOR KULKARNI DR: Allison Allen MD _ SOURCE: URINE SPDESC: ORDERED: Urine Culture COMMENTS: [id number] Procedure Result Reported Site Urine Culture Final 11/05/16- 916 ML No Growth (<1,000 CFU/mL) * ML - [facility] ([facility]) . END OF REPORT * ML=Testing performed at Main Lab DEPARTMENT OF PATHOLOGY, [address] [place] [address] Toro Sheldon M.D. Director [facility] # [id number] 39 [id number] 40 [id number] SEE RESULT BELOW Name: BEBETO ALEX : [address]: Lyle Napoles MD Acct: [id number] Unit: [id number] AGE: 50 Location: [facility] Re07/17/16 SEX: F Status: DEP ER SPEC: [id number] ODESSA: 07/17/[address] [facility] [address]: Llye Napoles MD REQ: [id number] RECD: 07/18/16 STATUS: TREVOR KULKARNI DR: Allison Oliva MD [facility] _ SOURCE: URINE SPDESC: ORDERED: Urine Culture COMMENTS: [id number] Procedure Result Reported Site Urine Culture Final 07/19/16- 0836 ML No Growth (<1,000 CFU/mL) * ML - MAIN LAB ([facility]) . END OF REPORT * ML=Testing performed at Main Lab DEPARTMENT OF PATHOLOGY, [address] [place] [address] Toro Sheldon M.D. Director [facility] # [id number] 42 Desirable <150 Borderline high 150-199 High 200-499 Very High >500 43 Desirable <200 Borderline high 200-239 High >239 44 Low <40 Desirable: 40-60 High: >60 45 Desirable: <100 mg/dL Near Optimal: 100-129 mg/dL Borderline High: 130-159 mg/dL High: 160-189 mg/dL Very High: >189 mg/dL 46 Test Performed by: [place] [address] Supervisor: Yan Sage II, M.D., Ph.D. 47 [id number] 49 Test Performed by: [place] [address] Supervisor: Yan Sage II, M.D., Ph.D. 50 Serologic response to B. burgdorferi infection is not detected, but cannot rule out early infection during which low or undetectable antibody levels to B. burgdorferi may be present. If clinically indicated, a new serum specimen should be submitted in 7-14 days. Test Performed by: [place] [address] Supervisor: Yan Sage II, M.D., Ph.D. 51 [id number] 54 [id number] 55 Low risk: <1.00 Average risk: 1.00-3.00 High risk: >3.00 56 [id number] 57 Interpretation: Weak Positive (1.1-2.9) REFERENCE VALUE <=1.0 (Negative) 58 REFERENCE VALUE <20.0 (Negative) 59 Tests for antibodies to dsDNA and CHRIS antigens are not performed automatically unless the MANOJ result is > or= 3.0 U. Studies performed at [facility] indicate that positive MANOJ results <3.0 U are rarely accompanied by positive second order tests. Test Performed by: [facility] - [address] [address] [address] Supervisor: Yan Sage II, M.D., Ph.D. 60 Because ethnic data is not always readily [...] Kidney failure <15 (or dialysis) Procedures Date Code Description Status 08/21/2018 14533 EKG Completed 01/22/2018 [id number] Colonoscopy Completed 07/26/2017 01444 Visual Screening Test Completed 07/26/2017 60266 Audiometry, Bekesy, Screening Completed 05/04/2017 64433 Tympanometry Completed 09/08/2016 83491 Spirometry Completed 09/08/2016 82991 Tympanometry Completed 05/20/2016 76604 EKG Completed 01/21/2016 09620 Visual Screening Test Completed 01/21/2016 55460 Audiometry, Bekesy, Screening Completed Encounters Type Date Location Provider Dx Diagnosis Office Visit 02/15/2019 [facility] Yan Remy M32.9 Systemic lupus 10:00a N.P. 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 I83.12 Varicose veins of left lower extremity with inflammation N92.0 Excessive and frequent menstruation with regular cycle L20.9 Atopic dermatitis, unspecified M54.5 Low back pain M25.559 Pain in unspecified hip M25.569 Pain in unspecified knee F41.9 Anxiety disorder, unspecified F33.9 Major depressive disorder, recurrent, unspecified G47.00 Insomnia, unspecified R53.83 Other fatigue K58.9 Irritable bowel syndrome without diarrhea G43.119 Migraine with aura, intractable, without status migrainosus J45.909 Unspecified asthma, uncomplicated M35.8 Other specified systemic involvement of connective tissue D68.61 Antiphospholipid syndrome D50.9 Iron deficiency anemia, unspecified E78.2 Mixed hyperlipidemia E55.9 Vitamin D deficiency, unspecified K21.0 Gastro-esophageal reflux disease with esophagitis K30 Functional dyspepsia J30.9 Allergic rhinitis, unspecified H92.01 Otalgia, right ear Office Visit 01/18/2019 10:00a [facility] Yan Remy, M32.9 Systemic lupus N.P. 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 I83.12 Varicose veins of left lower extremity with inflammation N92.0 Excessive and frequent menstruation with regular cycle L20.9 Atopic dermatitis, unspecified M54.5 Low back pain M25.559 Pain in unspecified hip M25.569 Pain in unspecified knee F41.9 Anxiety disorder, unspecified F33.9 Major depressive disorder, recurrent, unspecified G47.00 Insomnia, unspecified R53.83 Other fatigue K58.9 Irritable bowel syndrome without diarrhea G43.119 Migraine with aura, intractable, without status migrainosus J45.909 Unspecified asthma, uncomplicated M35.8 Other specified systemic involvement of connective tissue D68.61 Antiphospholipid syndrome D50.9 Iron deficiency anemia, unspecified E78.2 Mixed hyperlipidemia E55.9 Vitamin D deficiency, unspecified K21.0 Gastro-esophageal reflux disease with esophagitis K30 Functional dyspepsia J30.9 Allergic rhinitis, unspecified H92.01 Otalgia, right ear Office Visit 12/19/2018 10:15a [facility] Yan Remy, M32.9 Systemic lupus N.P. 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 I83.12 Varicose veins of left lower extremity with inflammation N92.0 Excessive and frequent menstruation with regular cycle L20.9 Atopic dermatitis, unspecified M54.5 Low back pain M25.559 Pain in unspecified hip M25.569 Pain in unspecified knee F41.9 Anxiety disorder, unspecified F33.9 Major depressive disorder, recurrent, unspecified G47.00 Insomnia, unspecified R53.83 Other fatigue K58.9 Irritable bowel syndrome without diarrhea G43.119 Migraine with aura, intractable, without status migrainosus J45.909 Unspecified asthma, uncomplicated M35.8 Other specified systemic involvement of connective tissue D68.61 Antiphospholipid syndrome D50.9 Iron deficiency anemia, unspecified E78.2 Mixed hyperlipidemia E55.9 Vitamin D deficiency, unspecified K21.0 Gastro-esophageal reflux disease with esophagitis K30 Functional dyspepsia J30.9 Allergic rhinitis, unspecified H92.01 Otalgia, right ear Office Visit 11/14/2018 10:00a [facility] Yan Remy, M32.9 Systemic lupus N.P. 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 I83.12 Varicose veins of left lower extremity with inflammation N92.0 Excessive and frequent menstruation with regular cycle L20.9 Atopic dermatitis, unspecified M54.5 Low back pain M25.559 Pain in unspecified hip M25.569 Pain in unspecified knee F41.9 Anxiety disorder, unspecified F33.9 Major depressive disorder, recurrent, unspecified G47.00 Insomnia, unspecified R53.83 Other fatigue K58.9 Irritable bowel syndrome without diarrhea G43.119 Migraine with aura, intractable, without status migrainosus J45.909 Unspecified asthma, uncomplicated M35.8 Other specified systemic involvement of connective tissue D68.61 Antiphospholipid syndrome D50.9 Iron deficiency anemia, unspecified E78.2 Mixed hyperlipidemia E55.9 Vitamin D deficiency, unspecified K21.0 Gastro-esophageal reflux disease with esophagitis K30 Functional dyspepsia J30.9 Allergic rhinitis, unspecified H92.01 Otalgia, right ear Office Visit 10/10/2018 10:00a [facility] Yan Remy M32.9 Systemic lupus N.P. 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 I83.12 Varicose veins of left lower extremity with inflammation N92.0 Excessive and frequent menstruation with regular cycle L20.9 Atopic dermatitis, unspecified M54.5 Low back pain M25.559 Pain in unspecified hip M25.569 Pain in unspecified knee F41.9 Anxiety disorder, unspecified F33.9 Major depressive disorder, recurrent, unspecified G47.00 Insomnia, unspecified R53.83 Other fatigue K58.9 Irritable bowel syndrome without diarrhea G43.119 Migraine with aura, intractable, without status migrainosus J45.909 Unspecified asthma, uncomplicated M35.8 Other specified systemic involvement of connective tissue D68.61 Antiphospholipid syndrome D50.9 Iron deficiency anemia, unspecified E78.2 Mixed hyperlipidemia E55.9 Vitamin D deficiency, unspecified K21.0 Gastro-esophageal reflux disease with esophagitis K30 Functional dyspepsia J30.9 Allergic rhinitis, unspecified H92.01 Otalgia, right ear Office Visit 08/21/2018 10:30a [facility] Pj Matthewgillian M32.9 Systemic lupus MShobha McdonaldD. 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 I83.12 Varicose veins of left lower extremity with inflammation N92.0 Excessive and frequent menstruation with regular cycle L20.9 Atopic dermatitis, unspecified M54.5 Low back pain M25.559 Pain in unspecified hip M25.569 Pain in unspecified knee F41.9 Anxiety disorder, unspecified F33.9 Major depressive disorder, recurrent, unspecified G47.00 Insomnia, unspecified R53.83 Other fatigue K58.9 Irritable bowel syndrome without diarrhea G43.119 Migraine with aura, intractable, without status migrainosus J45.909 Unspecified asthma, uncomplicated M35.8 Other specified systemic involvement of connective tissue D68.61 Antiphospholipid syndrome D50.9 Iron deficiency anemia, unspecified E78.2 Mixed hyperlipidemia E55.9 Vitamin D deficiency, unspecified K21.0 Gastro-esophageal reflux disease with esophagitis K30 Functional dyspepsia J30.9 Allergic rhinitis, unspecified H92.01 Otalgia, right ear Z00.01 Encounter for general adult medical exam w abnormal findings Z12.31 Encntr screen mammogram for malignant neoplasm of breast Office Visit 07/26/2018 10:15a [facility] Allison Oliva M32.9 Systemic lupus Isabella Yeager 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 I83.12 Varicose veins of left lower extremity with inflammation N92.0 Excessive and frequent menstruation with regular cycle L20.9 Atopic dermatitis, unspecified M54.5 Low back pain M25.559 Pain in unspecified hip M25.569 Pain in unspecified knee F41.9 Anxiety disorder, unspecified F33.9 Major depressive disorder, recurrent, unspecified G47.00 Insomnia, unspecified R53.83 Other fatigue K58.9 Irritable bowel syndrome without diarrhea G43.119 Migraine with aura, intractable, without status migrainosus J45.909 Unspecified asthma, uncomplicated M35.8 Other specified systemic involvement of connective tissue D68.61 Antiphospholipid syndrome D50.9 Iron deficiency anemia, unspecified E78.2 Mixed hyperlipidemia E55.9 Vitamin D deficiency, unspecified K21.0 Gastro-esophageal reflux disease with esophagitis K30 Functional dyspepsia J30.9 Allergic rhinitis, unspecified H92.01 Otalgia, right ear Office Visit 06/20/2018 10:15a [facility] Yan Remy, M32.9 Systemic lupus N.P. 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 I83.12 Varicose veins of left lower extremity with inflammation N92.0 Excessive and frequent menstruation with regular cycle L20.9 Atopic dermatitis, unspecified M54.5 Low back pain M25.559 Pain in unspecified hip M25.569 Pain in unspecified knee F41.9 Anxiety disorder, unspecified F33.9 Major depressive disorder, recurrent, unspecified G47.00 Insomnia, unspecified R53.83 Other fatigue K58.9 Irritable bowel syndrome without diarrhea G43.119 Migraine with aura, intractable, without status migrainosus J45.909 Unspecified asthma, uncomplicated K30 Functional dyspepsia J30.9 Allergic rhinitis, unspecified Office Visit 05/09/2018 10:30a [facility] Yan Remy, M32.9 Systemic lupus N.P. 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 I83.12 Varicose veins of left lower extremity with inflammation N92.0 Excessive and frequent menstruation with regular cycle L20.9 Atopic dermatitis, unspecified M54.5 Low back pain M25.559 Pain in unspecified hip M25.569 Pain in unspecified knee F41.9 Anxiety disorder, unspecified F33.9 Major depressive disorder, recurrent, unspecified G47.00 Insomnia, unspecified R53.83 Other fatigue K58.9 Irritable bowel syndrome without diarrhea G43.119 Migraine with aura, intractable, without status migrainosus J45.909 Unspecified asthma, uncomplicated M35.8 Other specified systemic involvement of connective tissue D68.61 Antiphospholipid syndrome D50.9 Iron deficiency anemia, unspecified E78.2 Mixed hyperlipidemia E55.9 Vitamin D deficiency, unspecified K21.0 Gastro-esophageal reflux disease with esophagitis K30 Functional dyspepsia J30.9 Allergic rhinitis, unspecified [facility]., M.D. 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 I83.12 Varicose veins of left lower extremity with inflammation N92.0 Excessive and frequent menstruation with regular cycle L20.9 Atopic dermatitis, unspecified M54.5 Low back pain M25.559 Pain in unspecified hip M25.569 Pain in unspecified knee F41.9 Anxiety disorder, unspecified F33.9 Major depressive disorder, recurrent, unspecified G47.00 Insomnia, unspecified R53.83 Other fatigue K58.9 Irritable bowel syndrome without diarrhea G43.119 Migraine with aura, intractable, without status migrainosus J45.909 Unspecified asthma, uncomplicated M35.8 Other specified systemic involvement of connective tissue D68.61 Antiphospholipid syndrome D50.9 Iron deficiency anemia, unspecified E78.2 Mixed hyperlipidemia E55.9 Vitamin D deficiency, unspecified K21.0 Gastro-esophageal reflux disease with esophagitis K30 Functional dyspepsia J30.9 Allergic rhinitis, unspecified Office Visit 03/14/2018 10:00a [facility] PjAllison cordero M32.9 Systemic lupus M., M.D. 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 I83.12 Varicose veins of left lower extremity with inflammation N92.0 Excessive and frequent menstruation with regular cycle L20.9 Atopic dermatitis, unspecified M54.5 Low back pain M25.559 Pain in unspecified hip M25.569 Pain in unspecified knee F41.9 Anxiety disorder, unspecified F33.9 Major depressive disorder, recurrent, unspecified G47.00 Insomnia, unspecified R53.83 Other fatigue K58.9 Irritable bowel syndrome without diarrhea G43.119 Migraine with aura, intractable, without status migrainosus J45.909 Unspecified asthma, uncomplicated M35.8 Other specified systemic involvement of connective tissue D68.61 Antiphospholipid syndrome D50.9 Iron deficiency anemia, unspecified E78.2 Mixed hyperlipidemia E55.9 Vitamin D deficiency, unspecified K21.0 Gastro-esophageal reflux disease with esophagitis K30 Functional dyspepsia J30.9 Allergic rhinitis, unspecified [facility]., M.D. 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 I83.12 Varicose veins of left lower extremity with inflammation N92.0 Excessive and frequent menstruation with regular cycle L20.9 Atopic dermatitis, unspecified M54.5 Low back pain M25.559 Pain in unspecified hip M25.569 Pain in unspecified knee F41.9 Anxiety disorder, unspecified F33.9 Major depressive disorder, recurrent, unspecified G47.00 Insomnia, unspecified R53.83 Other fatigue K58.9 Irritable bowel syndrome without diarrhea G43.119 Migraine with aura, intractable, without status migrainosus J45.909 Unspecified asthma, uncomplicated M35.8 Other specified systemic involvement of connective tissue D68.61 Antiphospholipid syndrome D50.9 Iron deficiency anemia, unspecified E78.2 Mixed hyperlipidemia E55.9 Vitamin D deficiency, unspecified K21.0 Gastro-esophageal reflux disease with esophagitis K30 Functional dyspepsia [facility] Systemic lupus M., M.D. 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 I83.12 Varicose veins of left lower extremity with inflammation N92.0 Excessive and frequent menstruation with regular cycle L20.9 Atopic dermatitis, unspecified M54.5 Low back pain M25.559 Pain in unspecified hip M25.569 Pain in unspecified knee F41.9 Anxiety disorder, unspecified F33.9 Major depressive disorder, recurrent, unspecified G47.00 Insomnia, unspecified R53.83 Other fatigue K58.9 Irritable bowel syndrome without diarrhea G43.119 Migraine with aura, intractable, without status migrainosus J45.909 Unspecified asthma, uncomplicated M35.8 Other specified systemic involvement of connective tissue D68.61 Antiphospholipid syndrome D50.9 Iron deficiency anemia, unspecified E78.2 Mixed hyperlipidemia E55.9 Vitamin D deficiency, unspecified Office Visit 11/29/2017 10:45a [facility] Pj Matthewgillian M32.9 Systemic lupus MIsabella Mcdonald 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 I83.12 Varicose veins of left lower extremity with inflammation N92.0 Excessive and frequent menstruation with regular cycle L20.9 Atopic dermatitis, unspecified M54.5 Low back pain M25.559 Pain in unspecified hip M25.569 Pain in unspecified knee F41.9 Anxiety disorder, unspecified F33.9 Major depressive disorder, recurrent, unspecified G47.00 Insomnia, unspecified R53.83 Other fatigue K58.9 Irritable bowel syndrome without diarrhea G43.119 Migraine with aura, intractable, without status migrainosus J45.909 Unspecified asthma, uncomplicated M35.8 Other specified systemic involvement of connective tissue D68.61 Antiphospholipid syndrome D50.9 Iron deficiency anemia, unspecified J01.90 Acute sinusitis, unspecified R09.81 Nasal congestion Office Visit 10/19/2017 9:30a [facility] Christian M32.9 Systemic lupus MOHSEN Pena 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 I83.12 Varicose veins of left lower extremity with inflammation N92.0 Excessive and frequent menstruation with regular cycle L20.9 Atopic dermatitis, unspecified M54.5 Low back pain M25.559 Pain in unspecified hip M25.569 Pain in unspecified knee F41.9 Anxiety disorder, unspecified F33.9 Major depressive disorder, recurrent, unspecified G47.00 Insomnia, unspecified R53.83 Other fatigue K58.9 Irritable bowel syndrome without diarrhea G43.119 Migraine with aura, intractable, without status migrainosus J45.909 Unspecified asthma, uncomplicated M35.8 Other specified systemic involvement of connective tissue D68.61 Antiphospholipid syndrome D50.9 Iron deficiency anemia, unspecified J01.90 Acute sinusitis, unspecified R09.81 Nasal congestion Office Visit 08/23/2017 9:45a [facility] Zhang Walker M32.9 Systemic lupus [employer] 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 G25.81 Restless legs syndrome E05.90 Thyrotoxicosis, unsp without thyrotoxic crisis or storm Office Visit 07/26/2017 9:30a [facility] Zhang Walekr Z00.01 Encounter for [employer] general adult medical exam w abnormal findings M32.9 Systemic lupus 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 G25.81 Restless legs syndrome Office Visit 06/28/2017 9:45a [facility] Zhang Walker M32.9 Systemic lupus [employer] erythematosus, unspecified G25.81 Restless legs syndrome 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 F90.0 Attn-defct hyperactivity disorder, predom inattentive type Office Visit 06/07/2017 4:00p [facility] Zhang Walker M32.9 Systemic lupus D[employer] erythematosus, unspecified E05.90 Thyrotoxicosis, unsp without thyrotoxic crisis or storm Office Visit 05/31/2017 11:00a [facility] Zhang Walker E05.90 Thyrotoxicosis, unsp D[employer] without thyrotoxic crisis or storm M32.9 Systemic lupus erythematosus, unspecified E61.1 Iron deficiency 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 I83.12 Varicose veins of left lower extremity with inflammation N92.0 Excessive and frequent menstruation with regular cycle Office Visit 05/04/2017 9:30a [facility] Zhang Walker H81.13 Benign paroxysmal [employer] vertigo, bilateral G25.81 Restless legs syndrome E78.2 Mixed hyperlipidemia M32.9 Systemic lupus erythematosus, unspecified F90.0 Attn-defct hyperactivity disorder, predom inattentive type J02.9 Acute pharyngitis, unspecified J01.80 Other acute sinusitis Office Visit 03/15/2017 9:45a [facility] Zhang Walker H81.13 Benign paroxysmal [employer] vertigo, bilateral G25.81 Restless legs syndrome E78.2 Mixed hyperlipidemia M32.9 Systemic lupus erythematosus, unspecified F90.0 Attn-defct hyperactivity disorder, predom inattentive type Office Visit 02/01/2017 10:00a [facility] Zhang Walker G25.81 Restless legs syndrome E78.2 Mixed hyperlipidemia M32.9 Systemic lupus erythematosus, unspecified N30.20 Other chronic cystitis without hematuria M79.606 Pain in leg, unspecified F90.0 Attn-defct hyperactivity disorder, predom inattentive type K59.00 Constipation, unspecified E61.1 Iron deficiency Office Visit 12/21/2016 9:45a [facility] Zhang Walker G25.81 Restless legs syndrome E78.2 Mixed hyperlipidemia M32.9 Systemic lupus erythematosus, unspecified N30.20 Other chronic cystitis without hematuria M79.606 Pain in leg, unspecified F90.0 Attn-defct hyperactivity disorder, predom inattentive type Office Visit 11/16/2016 9:45a [facility] Zhang Walker G25.81 Restless legs syndrome E78.2 Mixed hyperlipidemia J30.9 Allergic rhinitis, unspecified M32.9 Systemic lupus erythematosus, unspecified N30.20 Other chronic cystitis without hematuria J31.2 Chronic pharyngitis Office Visit 10/12/2016 9:45a [facility] Zhang Walker G25.81 Restless legs syndrome E78.2 Mixed hyperlipidemia J30.9 Allergic rhinitis, unspecified M32.9 Systemic lupus erythematosus, unspecified J01.80 Other acute sinusitis Office Visit 09/23/2016 10:30a [facility] Zhang Walker G25.81 Restless legs D[employer] syndrome Office Visit 09/08/2016 10:15a [facility] Allison Oliva E78.2 Mixed hyperlipidemia Isabella Yeager J30.9 Allergic rhinitis, unspecified L20.9 Atopic dermatitis, unspecified M54.5 Low back pain M79.606 Pain in leg, unspecified M25.559 Pain in unspecified hip M25.569 Pain in unspecified knee F90.0 Attn-defct hyperactivity disorder, predom inattentive type F41.9 Anxiety disorder, unspecified F33.9 Major depressive disorder, recurrent, unspecified G47.00 Insomnia, unspecified R53.83 Other fatigue K59.00 Constipation, unspecified K58.9 Irritable bowel syndrome without diarrhea G43.119 Migraine with aura, intractable, without status migrainosus N92.0 Excessive and frequent menstruation with regular cycle G25.81 Restless legs syndrome J45.909 Unspecified asthma, uncomplicated M32.9 Systemic lupus erythematosus, unspecified M35.8 Other specified systemic involvement of connective tissue J31.2 Chronic pharyngitis D68.61 Antiphospholipid syndrome R07.9 Chest pain, unspecified D50.9 Iron deficiency anemia, unspecified J20.9 Acute bronchitis, unspecified J01.40 Acute pansinusitis, unspecified H66.93 Otitis media, unspecified, bilateral R06.02 Shortness of breath R05 Cough R09.81 Nasal congestion Office Visit 08/09/2016 10:00a [facility] Allison Oliva E78.2 Mixed hyperlipidemia Isabella Yeager J30.9 Allergic rhinitis, unspecified L20.9 Atopic dermatitis, unspecified M54.5 Low back pain M79.606 Pain in leg, unspecified M25.559 Pain in unspecified hip M25.569 Pain in unspecified knee F90.0 Attn-defct hyperactivity disorder, predom inattentive type F41.9 Anxiety disorder, unspecified F33.9 Major depressive disorder, recurrent, unspecified G47.00 Insomnia, unspecified R53.83 Other fatigue K59.00 Constipation, unspecified K58.9 Irritable bowel syndrome without diarrhea G43.119 Migraine with aura, intractable, without status migrainosus N92.0 Excessive and frequent menstruation with regular cycle G25.81 Restless legs syndrome J45.909 Unspecified asthma, uncomplicated M32.9 Systemic lupus erythematosus, unspecified M35.8 Other specified systemic involvement of connective tissue J31.2 Chronic pharyngitis D68.61 Antiphospholipid syndrome R07.9 Chest pain, unspecified D50.9 Iron deficiency anemia, unspecified Office Visit 06/24/2016 9:30a [facility] E78.2 Mixed hyperlipidemia Isabella Yeager J30.9 Allergic rhinitis, unspecified L20.9 Atopic dermatitis, unspecified M54.5 Low back pain M79.606 Pain in leg, unspecified M25.559 Pain in unspecified hip M25.569 Pain in unspecified knee F90.0 Attn-defct hyperactivity disorder, predom inattentive type F41.9 Anxiety disorder, unspecified F33.9 Major depressive disorder, recurrent, unspecified G47.00 Insomnia, unspecified R53.83 Other fatigue K59.00 Constipation, unspecified K58.9 Irritable bowel syndrome without diarrhea G43.119 Migraine with aura, intractable, without status migrainosus G25.81 Restless legs syndrome N92.0 Excessive and frequent menstruation with regular cycle J45.909 Unspecified asthma, uncomplicated M32.9 Systemic lupus erythematosus, unspecified M35.8 Other specified systemic involvement of connective tissue J31.2 Chronic pharyngitis D68.61 Antiphospholipid syndrome R07.9 Chest pain, unspecified Office Visit 05/20/2016 9:30a [facility] E78.2 Mixed hyperlipidemia Isabella Yeager J30.9 Allergic rhinitis, unspecified L20.9 Atopic dermatitis, unspecified M54.5 Low back pain M79.606 Pain in leg, unspecified M25.559 Pain in unspecified hip M25.569 Pain in unspecified knee F90.0 Attn-defct hyperactivity disorder, predom inattentive type F41.9 Anxiety disorder, unspecified F33.9 Major depressive disorder, recurrent, unspecified G47.00 Insomnia, unspecified R53.83 Other fatigue K59.00 Constipation, unspecified K58.9 Irritable bowel syndrome without diarrhea G43.119 Migraine with aura, intractable, without status migrainosus G25.81 Restless legs syndrome N92.0 Excessive and frequent menstruation with regular cycle J45.909 Unspecified asthma, uncomplicated M32.9 Systemic lupus erythematosus, unspecified M35.8 Other specified systemic involvement of connective tissue J31.2 Chronic pharyngitis D68.61 Antiphospholipid syndrome R07.9 Chest pain, unspecified Office Visit 04/22/2016 9:45a [facility] E78.2 Mixed hyperlipidemia Isabella Yeager J30.9 Allergic rhinitis, unspecified L20.9 Atopic dermatitis, unspecified M54.5 Low back pain M79.606 Pain in leg, unspecified M25.559 Pain in unspecified hip M25.569 Pain in unspecified knee F90.0 Attn-defct hyperactivity disorder, predom inattentive type F41.9 Anxiety disorder, unspecified F33.9 Major depressive disorder, recurrent, unspecified G47.00 Insomnia, unspecified R53.83 Other fatigue K59.00 Constipation, unspecified K58.9 Irritable bowel syndrome without diarrhea G43.119 Migraine with aura, intractable, without status migrainosus G25.81 Restless legs syndrome N92.0 Excessive and frequent menstruation with regular cycle J45.909 Unspecified asthma, uncomplicated M32.9 Systemic lupus erythematosus, unspecified M35.8 Other specified systemic involvement of connective tissue J31.2 Chronic pharyngitis Office Visit 03/18/2016 9:45a [facility] E78.2 Mixed hyperlipidemia Isabella Yeager J30.9 Allergic rhinitis, unspecified L20.9 Atopic dermatitis, unspecified M54.5 Low back pain M79.606 Pain in leg, unspecified M25.559 Pain in unspecified hip M25.569 Pain in unspecified knee F90.0 Attn-defct hyperactivity disorder, predom inattentive type F41.9 Anxiety disorder, unspecified F33.9 Major depressive disorder, recurrent, unspecified G47.00 Insomnia, unspecified R53.83 Other fatigue K59.00 Constipation, unspecified K58.9 Irritable bowel syndrome without diarrhea G43.119 Migraine with aura, intractable, without status migrainosus G25.81 Restless legs syndrome N92.0 Excessive and frequent menstruation with regular cycle J45.909 Unspecified asthma, uncomplicated M32.9 Systemic lupus erythematosus, unspecified M35.8 Other specified systemic involvement of connective tissue J02.9 Acute pharyngitis, unspecified Office Visit 02/25/2016 11:30a [facility] PjAllison cordero E78.2 Mixed hyperlipidemia Isabella Yeager J30.9 Allergic rhinitis, unspecified L20.9 Atopic dermatitis, unspecified M54.5 Low back pain M79.606 Pain in leg, unspecified M25.559 Pain in unspecified hip M25.569 Pain in unspecified knee F90.0 Attn-defct hyperactivity disorder, predom inattentive type F41.9 Anxiety disorder, unspecified F33.9 Major depressive disorder, recurrent, unspecified G47.00 Insomnia, unspecified R53.83 Other fatigue K59.00 Constipation, unspecified K58.9 Irritable bowel syndrome without diarrhea G43.119 Migraine with aura, intractable, without status migrainosus G25.81 Restless legs syndrome N92.0 Excessive and frequent menstruation with regular cycle J45.909 Unspecified asthma, uncomplicated M32.9 Systemic lupus erythematosus, unspecified M35.8 Other specified systemic involvement of connective tissue Office Visit 02/19/2016 9:45a [facility] Allison Oliva E78.2 Mixed hyperlipidemia Isabella Yeager J30.9 Allergic rhinitis, unspecified L20.9 Atopic dermatitis, unspecified M54.5 Low back pain M79.606 Pain in leg, unspecified M25.559 Pain in unspecified hip M25.569 Pain in unspecified knee F90.0 Attn-defct hyperactivity disorder, predom inattentive type F41.9 Anxiety disorder, unspecified F33.9 Major depressive disorder, recurrent, unspecified G47.00 Insomnia, unspecified R53.83 Other fatigue K59.00 Constipation, unspecified K58.9 Irritable bowel syndrome without diarrhea G43.119 Migraine with aura, intractable, without status migrainosus G25.81 Restless legs syndrome N92.0 Excessive and frequent menstruation with regular cycle J45.909 Unspecified asthma, uncomplicated [facility] for Isabella Yeager general adult medical exam w abnormal findings E78.2 Mixed hyperlipidemia J30.9 Allergic rhinitis, unspecified L20.9 Atopic dermatitis, unspecified M54.5 Low back pain M79.606 Pain in leg, unspecified M25.559 Pain in unspecified hip Z68.21 Body mass index (BMI) 21.0-21.9, adult M25.569 Pain in unspecified knee F90.0 Attn-defct hyperactivity disorder, predom inattentive type F41.9 Anxiety disorder, unspecified F33.9 Major depressive disorder, recurrent, unspecified G47.00 Insomnia, unspecified R53.83 Other fatigue K59.00 Constipation, unspecified K58.9 Irritable bowel syndrome without diarrhea G43.119 Migraine with aura, intractable, without status migrainosus G25.81 Restless legs syndrome N92.0 Excessive and frequent menstruation with regular cycle J45.909 Unspecified asthma, uncomplicated Plan of Treatment Future Appointment(s):03/22/2019 10:00 am - Yan Remy N.P. at [facility]
[2019-03-10] MEDS ORDERED: Ondansetron INJ* 2 MG/ML VIAL IV ONE (10:46)
[2019-03-10] MEDS ORDERED: Pantoprazole IV* 40 MG IV ONE (10:46)
[2019-03-10] MEDS ORDERED: NS 0.9% 1000 ML** 1,000 ML IV ONE (10:46)
--- NOTE | 2019-03-10 10:46 | ED ---
Abdominal Pain/Female - HPI Summary HPI Summary: This patient is a 53 year old F presenting to ED with a chief complaint of intermittent abdominal pain since awhile worsening this morning. Patient had an endoscopy done last year and her GI doctor prescribed 300mg Zantac, but her stomach has gotten worse since. Last night patient consumed hard cider on an empty stomach and felt burning pain. She reports throwing up brown vomit many times last night and red vomit this morning. She states her lip and throat are burnt from the stomach acid. Patient was drinking with other people who had the same drinks. She took Zantac, which alleviated her pain. The patient rates the pain 5/10 in severity. Symptoms aggravated by hard cider. Symptoms alleviated by Zantac. Patient reports N/V, unable to eat anything, acid burn on lip and throat, diffuse abdominal pain. - History of Current Complaint Chief Complaint: EDAbdPain Stated Complaint: ACIDIC STOMACH/VOMITING PER PT Time Seen by Provider: 03/10/19 10:29 Hx Obtained From: Patient Hx Last Menstrual Period: 11/06/17 Onset/Duration: Gradual Onset, Lasting Weeks - "Awhile" per patient, Worse Since - Last night Timing: Intermittent Episode Lasting Severity Initially: Severe Severity Currently: Moderate Pain Intensity: 5 Pain Scale Used: 0-10 Numeric Location: Diffuse Radiates: No Radiates to: Other - Esophagus Character: Burning Aggravating Factor(s): Other: - Hard cider Alleviating Factor(s): Medications - Zantac Associated Signs and Symptoms: Positive: Nausea, Vomiting, Other: - Unable to eat anything, lip/throat burn Allergies/Adverse Reactions: Allergies Allergy/AdvReac Type Severity Reaction Status Date / Time Sulfa (Sulfonamide Allergy Rash Verified 03/10/19 10:30 Antibiotics) sumatriptan [From Imitrex] Allergy Rapid Verified 03/10/19 10:30 heart beat, throat feels like it is closing Home Medications: Home Medications Dextroamphetamine/Amphetamine [Dextroamp-Amphetamin 10 mg Tab] 20 mg PO DAILY [History Confirmed 03/10/19] Nortriptyline CAP* [Nortriptylline CAP*] 20 mg PO BEDTIME 03/10/19 [History Confirmed 03/10/19] raNITIdine HCl [Ranitidine HCl] 300 mg PO DAILY 03/10/19 [History Confirmed 06/20] PMH/Surg Hx/FS Hx/Imm Hx Previously Healthy: No Endocrine/Hematology History: Reports: Hx Blood Disorders, Hx Systemic Lupus Erythematosus, Hx Anemia Denies: Hx Diabetes Cardiovascular History: Denies: Hx Hypertension, Hx Pacemaker/ICD Respiratory History: Reports: Hx Seasonal Allergies GI History: Reports: Hx Irritable Bowel History: Reports: Hx Kidney Infection Sensory History: Reports: Hx Contacts or Glasses Denies: Hx Hearing Aid Opthamlomology History: Reports: Hx Contacts or Glasses Neurological History: Reports: Hx Headaches, Hx Migraine Psychiatric History: Reports: Hx Attention Deficit Hyperactivity Disorder Denies: Hx Panic Disorder - Cancer History Hx Chemotherapy: No Hx Radiation Therapy: No - Surgical History Surgery Procedure, Year, and Place: T&A. BREAST SX X 2- benign Infectious Disease History: No Infectious Disease History: Denies: Traveled Outside the [place] in Last 30 Days - Family History Known Family History: Positive: Cardiac Disease, Hypertension, Diabetes, Other - RA - Social History Alcohol Use: Rare - Hard cider Hx Substance Use: No Substance Use Type: Reports: None Hx Tobacco Use: No Smoking Status (MU): Never Smoked Tobacco Review of Systems Positive: Sore Throat - Burn throat from acid per patient Positive: Abdominal Pain, Vomiting, Nausea Skin: Other - "Acid burn" on lip All Other Systems Reviewed And Are Negative: Yes Physical Exam - Summary Physical Exam Summary: VITAL SIGNS: Reviewed. GENERAL: Patient is a well-developed and nourished female who is lying comfortable in the stretcher. Patient is not in any acute respiratory distress. HEAD AND FACE: Normocephalic and atraumatic. EYES: PERRLA, EOMI x 2, No injected conjunctiva. EARS: Hearing grossly intact. Ear canals and tympanic membranes are WNL. MOUTH: Oropharynx within normal limits. NECK: Supple, trachea is midline, no adenopathy, no JVD. CHEST: Symmetric, no tenderness at palpation LUNGS: Clear to auscultation bilaterally. No wheezing or crackles. CVS: RRR, S1 and S2 present, no murmurs or gallops appreciated. ABDOMEN: epigastric tenderness without rebound EXTREMITIES: FROM in all major joints, no edema, no cyanosis or clubbing. NEURO: Alert and oriented x 3. No acute neurological deficits. Speech is normal. SKIN: Dry and warm. Triage Information Reviewed: Yes Vital Signs On Initial Exam: Initial Vitals Temp Pulse Resp BP Pulse Ox 98.5 F 88 16 127/86 100 03/10/19 10:26 03/10/19 10:26 03/10/19 10:26 03/10/19 10:26 03/10/19 10:26 Vital Signs Reviewed: Yes Diagnostics - Vital Signs Vital Signs Temp Pulse Resp BP Pulse Ox 03/10/19 10:26 98.5 F 88 16 127/86 100 - Laboratory Result Diagrams: 03/10/19 10:52 03/10/19 10:52 Lab Statement: Any lab studies that have been ordered have been reviewed, and results considered in the medical decision making process. - Radiology Abdominal XR Radiology Interpretation Completed By: Radiologist Summary of Radiographic Findings: Normal abdominal radiograph. Dr. Fofana has reviewed this radiology report. - EKG 1054 Cardiac Rate: NL - 81 BPM EKG Rhythm: Sinus Rhythm ST Segment: Normal Summary of EKG Findings: NSR at 81 BPM, no ST elevations. Re-Evaluation - Re-Evaluation First Eval Re-Evaluation Time: 12:55 Change: Unchanged Comment: Patient reports her nausea is unchanged, but the burning is improved. Abdominal Pain Fem Course/Dx - Course Course Of Treatment: This patient is a 53 year old F presenting to ED with a chief complaint of intermittent abdominal pain since awhile worsening this morning. Patient had an endoscopy done last year and her GI doctor prescribed 300mg Zantac, but her stomach has gotten worse since. Last night patient consumed hard cider on an empty stomach and felt burning pain. She reports throwing up brown vomit many times last night and red vomit this morning. She states her lip and throat are burnt from the stomach acid. Patient was drinking with other people who had the same drinks. She took Zantac, which alleviated her pain. The patient rates the pain 5/10 in severity. Symptoms aggravated by hard cider. Symptoms alleviated by Zantac. Patient reports N/V, unable to eat anything, acid burn on lip and throat, diffuse abdominal pain. Patient was placed in a radiation monitor, IV access was obtained. She was given IV fluids, Zofran for nausea and vomiting and Protonix for the burning sensation in stomach. Blood work without any significant abnormality except for WBCs of 14.5 and slight decrease in H&H of 11. 0/32. Abdominal x-ray impression: Normal abdominal radiograph. I offered the patient Reglan however the patient reported that her symptoms have improved. The patient is able to tolerate by mouth without any nausea vomiting or any burning. The patient also was given a GI cocktail and she is feeling much better. Therefore, since the patient is able to tolerate by mouth, blood work within normal limits the patient will be discharged home with follow-up with PCP. I discussed all the findings and test results with the patient. Patient was instructed to return to the emergency room immediately if any of the symptoms return worsens. Plan of care was discussed with the patient and understands and agrees. All questions were answered at patient satisfaction. There were no further complaints or concerns. Lung exam before discharge: CTA B/L. Good air exchange. No wheezing or crackles heard. CVS: S1 and S2 present. No murmurs appreciated. Patient is alert and oriented x 3. Patient is hemodynamically stable. Patient will be discharged home with follow up PCP in the next 2-3 days. - Diagnoses Provider Diagnoses: Nausea and vomiting Discharge - Sign-Out/Discharge Documenting (check all that apply): Patient Departure - Discharge Patient Received Moderate/Deep Sedation with Procedure: No - Discharge Plan Condition: Stable Disposition: HOME Prescriptions: Ondansetron TAB* [Zofran 4 MG Tab*] 4 mg PO Q6H PRN #12 tab PRN Reason: Vomiting Patient Education Materials: Acute Nausea and Vomiting (ED) Referrals: Allison Oliva MD [Primary Care Provider] - 3 Days Additional Instructions: FOLLOW UP WITH YOUR PRIMARY CARE PROVIDER WITHIN ONE WEEK. RETURN TO THE ED FOR ANY WORSENING OR NEW SYMPTOMS. - Billing Disposition and Condition Condition: STABLE Disposition: Home - Attestation Statements Document Initiated by Glenda: Yes Documenting Scribe: Wai Turcios Provider For Whom Glenda is Documenting (Include Credential): Jesus Manuel Fofana MD Scribe Attestation: Wai Braden, jennaibed for Jesus Manuel Fofana MD on 03/11/19 at 1010. Scribe Documentation Reviewed: Yes Provider Attestation: The documentation as recorded by the Wai camara accurately reflects the service I personally performed and the decisions made by , Jesus Manuel Fofana MD Status of Scribe Document: Viewed
[2019-03-10 11:07] LABS: ABS Monocytes 0.7 10^3/ul (0-0.8); ABS Neutrophils 12.7 10^3/ul (1.5-7.7); Hematocrit 32 % (35-47); Lymphocyte % 6.8 %; Mean Corpuscular HGB Conc 34 g/dL (31-36); Mean Corpuscular Hemoglobin 30 pg (27-31); Mean Corpuscular Volume 90 fL (80-97); Nucleated Red Blood Cells % 0.1; Platelet Count 240 10^3/uL (150-450); Red Cell Distribution Width 13 % (10-15); White Blood Count 14.5 10^3/uL (3.5-10.8)
[2019-03-10 11:25] LABS: ALT 12 U/L (7-52); AST 16 U/L (13-39); Albumin 4.1 g/dL (3.2-5.2); Albumin/Globulin Ratio 1.8 (1-3); Alkaline Phosphatase 53 U/L (34-104); Anion Gap 9 mmol/L (2-11); BUN/Creatinine Ratio 20.7 (8-20); Blood Urea Nitrogen 12 mg/dL (6-24); C Reactive Protein 1.42 mg/L (<8.01); CO2 Carbon Dioxide 25 mmol/L (22-32); Calcium 8.9 mg/dL (8.6-10.3); Chloride 103 mmol/L (101-111); EGFR African American 132.6 (>60); EGFR Non-African American 109.6 (>60); Globulin 2.3 g/dL (2-4); Glucose 84 mg/dL (70-100); Potassium 3.7 mmol/L (3.5-5.0); Sodium 137 mmol/L (135-145); Total Protein 6.4 g/dL (6.4-8.9)
[2019-03-10 11:31] LABS: HCG Pregnancy < 0.60 mIU/mL
[2019-03-10 12:23] LABS: Urine Appearance Clear; Urine Bilirubin Negative (Negative); Urine Blood Negative (Negative); Urine Color Straw; Urine Glucose Negative (Negative); Urine Ketones 1+ (Negative); Urine Nitrite Negative (Negative); Urine Protein Negative (Negative); Urine Specific Gravity 1.008 (1.010-1.030); Urine Urobilinogen Negative (Negative)
[2019-03-10] MEDS ORDERED: Lidocaine 2% VISCOUS* 15 ML UDC PO ONE (12:55)
[2019-03-10] MEDS ORDERED: Al Hydrox/Mg Hydrox/Simet LIQ* 30 ML UDC PO ONE (12:55)
[2019-03-10] MEDS ORDERED: Metoclopramide IV* 5 MG/ML 2 ML VIAL IV ONE (12:56)
[2019-03-10] MEDS ORDERED: diPHENhydraMINE IV* 50 MG/ML 1 ml VIAL (BENADRYL) IV ONE (12:56)
[2019-03-10 15:00] VITALS: BP 111/68
== END 2019-03-10 14:59 | disposition home or self-care (01) ==
LOC: ED 10:18
DX: R11.2 Nausea with vomiting, unspecified (principal); M32.9 Systemic lupus erythematosus, unspecified; Z79.899 Other long term (current) drug therapy
CPT/HCPCS: 36415; 74019; 80053; 81003; 83605; 83690; 84702; 85025; 86140; 93005; 96361; 96374; 96375; 99283; A9270-GY; J1200; J2405; J2765